=== PATIENT | female | born 1935 | race Caucasian/White ===

== ENCOUNTER 2016-06-22 20:25 | Emergency (ER) | payer OTHER ==
[2016-06-22 20:30] VITALS: BP 149/72; PULSE 79; TEMP 98.4; BMI 26.2
--- NOTE | 2016-06-22 20:54 | PDOC ---
History of Present Illness - General History Source: Patient Exam Limitations: No Limitations - History of Present Illness Initial Comments: 06/22/16 21:32 The patient is a 80 year old female, with significant past medical history of COPD, HTN, HLP s/p pacemaker, CVA, hypothyroidism, who presents today complaining of weakness and SOB. The patient visited the emergency room on and was discharged with pneumonia.She states that she has not been feeling any better since she has been discharged. She was getting her hair done this morning when she felt very weak and felt like she was going to pass out. Upon arriving home, she used a nebulizer treatment. She states that she feels like she needs air and feels shaky. She reports a loss of appetite and states that she has not been sleeping because she is afraid she will not be able to breath. On Friday, 4 days ago, she saw Dr. Carnes who prescribed her 1 month of water pills. Denies fever, nausea, vomiting. Denies chest pain, palpitations. Allergies: None reported PCP- Dr. Radha Barrera Lung specialist: Dr. Salazar Cream Cheese Maker: Dr Jorge L Mcginnis Neuro- Dr. Heck <Lara Sawant - Last Filed: 06/22/16 22:53> - General History Source: Patient, Old Records Exam Limitations: No Limitations <Kaela Zamorano - Last Filed: 06/22/16 23:36> - General Chief Complaint: Respiratory Stated Complaint: WEKNESS TO LEGS/SOB Time Seen by Provider: 06/22/16 20:46 Past History <Lara Sawant - Last Filed: 06/22/16 22:53> - Past Medical History Cardiac Disorders: Yes (pacemaker) CVA: Yes COPD: Yes HTN: Yes Hypercholesterolemia: Yes Thyroid Disease: Yes - Surgical History Cholecystectomy: Yes - Immunization History Immunization Up to Date: Yes - Psycho/Social/Smoking Cessation Hx Anxiety: No Suicidal Ideation: No Smoking Status: No Smoking History: Never smoked Years of Tobacco Use: 20 Have you smoked in the past 12 months: No Number of Cigarettes Smoked Daily: 0 If you are a former smoker, when did you quit?: 30 years Cigars Per Day: 0 Hx Alcohol Use: No Drug/Substance Use Hx: No Substance Use Type: None Hx Substance Use Treatment: No <LonaKaela - Last Filed: 06/22/16 23:36> - Past Medical History Allergies/Adverse Reactions: Allergies Allergy/AdvReac Type Severity Reaction Status Date / Time No Known Allergies Allergy Verified 06/22/16 20:30 Home Medications: Ambulatory Orders Fluticasone/Salmeterol [Advair 100-50 Diskus] 1 inh IH BID #0 disk.w.dev Tiotropium [place] [Spiriva] 1 inh IH DAILY #0 inh 07/04/11 Aspirin/Dipyridamole [Aggrenox -] 1 combo PO BID 06/11/15 Thyroid,Pork [[place] Thyroid] 30 mg PO DAILY 06/11/15 Azithromycin [Zithromax 250mg Tablets -] 250 mg PO DAILY #3 tab 06/08/16 Lactobacillus Acidophilus [Acidophilus] 100 mg PO DAILY #14 capsule 06/08/16 Furosemide [Lasix -] 20 mg PO DAILY #7 tablet 06/09/16 Nitrofurantoin Monohyd/M-Cryst [Macrobid -] 100 mg PO BID #14 capsule 06/22/16 [place]-3 Fatty Acids [[place]-3] 1,000 mg PO 06/22/16 Review of Systems - Review of Systems Able to Perform ROS?: Yes Comments:: 06/22/16 21:33 CONSTITUTIONAL: Present: weakness, chills Absent: fever, no fatigue EYES: Absent: visual changes ENT: Absent: ear pain, no sore throat CARDIOVASCULAR: Absent: chest pain, no palpitations RESPIRATORY: Present: SOB Absent: cough GI: Absent: abdominal pain, no nausea, no vomiting, no constipation, no diarrhea GENITOURINARY: Absent: dysuria, no frequency, no hematuria MUSCULOSKELETAL: Absent: back pain, no arthralgia, no myalgia SKIN: Absent: rash <Lara Sawant - Last Filed: 06/22/16 22:53> *Physical Exam - Vital Signs Last Vital Signs Temp Pulse Resp BP Pulse Ox 98.4 F 79 18 149/72 98 06/22/16 20:27 06/22/16 20:27 06/22/16 20:27 06/22/16 20:27 06/22/16 20:27 - Physical Exam Comments: 06/22/16 21:33 GENERAL: Well-appearing, well-nourished. No apparent distress. HEENT: Normocephalic, atraumatic. PERRL, EOM intact. CARDIOVASCULAR: Normal S1, S2. Regular rate and rhythm. PULMONARY: +Good air movement of all lung hernandez with scant wheezing at the bases. ABDOMEN: Soft, non-distended, non-tender. EXTREMITIES: Normal ROM in all four extremities. No gross deformities. SKIN: Warm, dry. No rash NEUROLOGICAL: No focal neurological deficits. <Lara Sawant - Last Filed: 06/22/16 22:53> - Vital Signs Last Vital Signs Temp Pulse Resp BP Pulse Ox 98.4 F 79 18 149/72 98 06/22/16 20:27 06/22/16 20:27 06/22/16 20:27 06/22/16 20:27 06/22/16 20:27 <Kaela Zamorano - Last Filed: 06/22/16 23:36> ED Treatment Course - LABORATORY CBC & Chemistry Diagram: 06/22/16 21:31 06/22/16 21:31 <Lara Sawant - Last Filed: 06/22/16 22:53> - LABORATORY CBC & Chemistry Diagram: 06/22/16 21:31 06/22/16 21:31 <Kaela Zamorano - Last Filed: 06/22/16 23:36> Medical Decision Making - Medical Decision Making 06/22/16 22:49 Dr. Radha Barrera was paged via paging service for a doctor to doctor consult at 10:50pm. Awaiting call back. Dr. Saleh is covering for Dr. Barrera and called back at 10:54pm. He spoke with Dr. Zamorano regarding the patient's care. <Lauro Sawantssica - Last Filed: 06/22/16 22:53> - Medical Decision Making 06/22/16 21:23 The patient is a 80-year-old female with history of COPD, hypothyroid, CHF, hypertension who presents to the emergency department with generalized weakness and shortness of breath for 2 weeks. Differential diagnosis includes but is not limited to: COPD exacerbation, CHF exacerbation, pneumonia/infection, ACS, cardiac arrhythmia, anemia, electrolyte abnormality, toxic/metabolic derangement , anxiety. Plan: 1. EKG 2. Labs 3. Chest x-ray 4. DuoNeb treatments 5. Observe and reevaluate <Kaela Zamorano - Last Filed: 06/22/16 23:36> *DC/Admit/Observation/Transfer - Attestations Scribe Attestion: 06/22/16 21:33 Documentation prepared by DIETER Khan, acting as chief medical officer for Kaela Zamorano MD. <Lara Sawant - Last Filed: 06/22/16 22:53> - Discharge Dispostion Admit: No - Attestations Physician Attestion: 06/22/16 21:25 I, Dr. Kaela Zamorano, attest that the scribes documentation that appears above has been prepared under my direction and personally reviewed by me in its entirety. I confirmed that the note above accurately reflects all work, treatment, procedures, and medical decision-making performed by me. <Kaela Zamorano - Last Filed: 06/22/16 23:36> Diagnosis at time of Disposition: Shortness of breath, Urinary tract infection - Discharge Dispostion Disposition: HOME Condition at time of disposition: Stable - Prescriptions Prescriptions: Nitrofurantoin Monohyd/M-Cryst [Macrobid -] 100 mg PO BID #14 capsule - Referrals Referrals: Radha Barrera MD [Primary Care Provider] - - Patient Instructions Additional Instructions: You have a urinary tract infection. You have been given Macrobid 100 mg in the emergency department. Prescription for Macrobid 100 mg 1 tablet twice per day for 7 days has been sent to your pharmacy. Please follow up with your primary care physician this week. Return to the emergency department if your symptoms persist, worsen, or new symptoms arise.
[2016-06-22] MEDS ORDERED: IPRATROPIUM BR 0.02% 0.5 MG/2.5 ML VIAL.NEB. NEB ONE (21:13)
[2016-06-22] MEDS ORDERED: ALBUTEROL SO4 0.083% IH SOL 2.5 MG/3 ML VIAL.NEB. NEB ONE (21:13)
[2016-06-22] MEDS ORDERED: ALBUTEROL SO4 2.5/IPRATROPIUM 0.5 INH SOL 3 ML VIAL.NEB. NEB ONE (21:31)
[2016-06-22 21:45] LABS: BASOPHIL 0.6 % (0-2.0); EOSINOPHIL 0.6 % (0-4.5); MCH 31.2 pg (25.7-33.7); MCHC 32.8 g/dl (32.0-36.0); MEAN CELL VOLUME 95.3 fl (80-96); MEAN PLT VOLUME 7.9 fl (7.5-11.1); PLATELET COUNT 270 K/MM3 (134-434)
[2016-06-22 22:09] LABS: ALBUMIN 3.7 g/dl (3.4-5.0); ANION GAP 9 (8-16); BILIRUBIN,TOTAL 0.7 mg/dL (0.2-1.0); CALCIUM 8.8 mg/dL (8.5-10.1); CO2 29 mmol/L (21-32); CREATININE 0.8 mg/dL (0.55-1.02); GLUCOSE,RANDOM 107 mg/dL (74-106); SGOT/AST 17 U/L (15-37); SGPT/ALT 18 U/L (12-78); TOT PROT 6.8 g/dl (6.4-8.2)
[2016-06-22 22:11] LABS: ALK PHOS 97 U/L (45-117); TROPONIN I < 0.02 ng/ml (0.00-0.05)
[2016-06-22 22:57] LABS: URINE APPEARANCE SLCLOUDY; URINE BILIRUBIN NEGATIVE (NEGATIVE); URINE BLOOD NEGATIVE (NEGATIVE); URINE COLOR YELLOW; URINE GLUCOSE (UA) NEGATIVE (NEGATIVE); URINE KETONE TRACE (NEGATIVE); URINE NITRITE NEGATIVE (NEGATIVE); URINE UROBILINOGEN NEGATIVE E.U./dl (0.2-1.0)
[2016-06-22 23:18] LABS: URINE PROTEIN 1+ (NEGATIVE)
[2016-06-22 23:19] LABS: URINE LEUK ESTERASE 3+ (NEGATIVE)
[2016-06-22 23:23] LABS: URINE HYALINE CAST 1 /lpf; URINE MUCUS MODERATE; URINE RBC 4 /hpf (0-3); URINE WBC 108 /hpf (3-5)
[2016-06-22] MEDS ORDERED: NITROFURANTOIN MACROCRYSTAL 50 MG CAPSULE (FP) PO SCH (23:45)
[2016-06-23] MEDS ORDERED: NITROFURANTOIN MACROCRYSTAL 50 MG CAPSULE (FP) ONE (00:53)
--- NOTE | 2016-06-23 14:38 | EKG ---
Test Reason : Blood Pressure : / mmHG Vent. Rate : 066 BPM Atrial Rate : 066 BPM P-R Int : 000 ms QRS Dur : 148 ms QT Int : 448 ms P-R-T Axes : 000 -54 041 degrees QTc Int : 469 ms POOR DATA QUALITY, INTERPRETATION MAY BE ADVERSELY AFFECTED INTERMITTENT ATRIAL PACING WITH CAPTURE SINUS RHYTHM WITH A-V DISSOCIATION AND WIDE QRS RHYTHM LEFT AXIS DEVIATION LEFT BUNDLE BRANCH BLOCK ABNORMAL ECG WHEN COMPARED WITH ECG OF 09-JUN-2016 06:27, WIDE QRS RHYTHM HAS REPLACED ELECTRONIC ATRIAL PACEMAKER Confirmed by MIGUEL SINGH MD ([id number]) on 06/23/2016 2:38:18 PM Referred By: Confirmed By:MIGUEL SINGH MD
== END 2016-06-23 01:05 | disposition home or self-care (01) ==
LOC: JER 20:25
PROC: 3E0F7GC Introduction of Other Therapeutic Substance into Respiratory Tract, Via Natural or Artificial Opening (ICD-10-PCS; principal; 2016-06-22)
PROC: 3E0F7GC Introduction of Other Therapeutic Substance into Respiratory Tract, Via Natural or Artificial Opening (ICD-10-PCS; 2016-06-22)
DX: N39.0 Urinary tract infection, site not specified (principal); I10 Essential (primary) hypertension; E78.00 Pure hypercholesterolemia, unspecified; E03.9 Hypothyroidism, unspecified; I50.9 Heart failure, unspecified; J44.9 Chronic obstructive pulmonary disease, unspecified; Z86.73 Personal history of transient ischemic attack (TIA), and cerebral infarction without residual deficits; Z95.0 Presence of cardiac pacemaker
CPT/HCPCS: 36415; 71020-TC; 80053; 81003; 81015; 82550; 83880; 84484; 85025; 87086; 93005; 93010; 94640; 99282-25

== ENCOUNTER 2016-12-11 11:02 | Inpatient (IN) | payer OTHER ==
[2016-12-11] MEDS ORDERED: methylPREDNISolone NA SUCC 125 MG/2 ML VIAL IVPB ONE (12:04)
--- NOTE | 2016-12-11 12:05 | PDOC ---
History of Present Illness - General History Source: Patient Exam Limitations: No Limitations - History of Present Illness Initial Comments: 12/11/16 12:14 The patient is an 81-year-old woman with a significant past medical history of hypertension, hypercholesterolemia, cerebrovascular accident, thyroid disease and chronic obstructive pulmonary disease who presents to the emergency department with complaints of a cough since last night. Upon ED arrival, patient ios noted to have an oxygen saturation of 89% and an oral temperature of 99.1. She reports endorsing an intermittent dry non-productive cough last night. No associated fevers, chills. She has not taken any over the counter medicines to help her with her cough. She reports her cough had worsened throughout the morning, as now it is constant. She denies associated symptoms of shortness of breath. sore throat, chest pain, nausea, vomiting, diarrhea. She expresses concern for possible pneumonia. No recent travel. No sick contacts. Allergies: No Known Drug Allergies Past Surgicla History: Permanent Pacemaker Placement Social History: Former smoker (quit approximately 30 years ago). No EtOH and recreational drug use. Primary Care Physician: Dr. Radha Carnes <Joanie Hankins - Last Filed: 12/11/16 14:25> <Carmelita Gaines - Last Filed: 12/11/16 21:04> - General Chief Complaint: Respiratory Stated Complaint: (PCP SENT) Time Seen by Provider: 12/11/16 11:39 Past History <Joanie Hankins - Last Filed: 12/11/16 14:25> - Past Medical History Cardiac Disorders: Yes (pacemaker) CVA: Yes COPD: Yes HTN: Yes Hypercholesterolemia: Yes Thyroid Disease: Yes - Surgical History Cholecystectomy: Yes Lung Surgery: Yes (R LUNG .) - Immunization History Immunization Up to Date: Yes - Psycho/Social/Smoking Cessation Hx Anxiety: No Suicidal Ideation: No Smoking Status: No Smoking History: Former smoker Years of Tobacco Use: 20 Have you smoked in the past 12 months: No Number of Cigarettes Smoked Daily: 0 If you are a former smoker, when did you quit?: 30 YRS AGO Cigars Per Day: 0 Information on smoking cessation initiated: No Hx Alcohol Use: No Drug/Substance Use Hx: No Substance Use Type: None Hx Substance Use Treatment: No <Carmelita Gaines - Last Filed: 12/11/16 21:04> - Past Medical History Allergies/Adverse Reactions: Allergies Allergy/AdvReac Type Severity Reaction Status Date / Time No Known Allergies Allergy Verified 12/11/16 11:09 Home Medications: Ambulatory Orders Fluticasone/Salmeterol [Advair 100-50 Diskus] 1 inh IH BID #0 disk.w.dev Tiotropium [place] [Spiriva] 1 inh IH DAILY #0 inh 07/04/11 Aspirin/Dipyridamole [Aggrenox -] 1 combo PO BID 06/11/15 Thyroid,Pork [[place] Thyroid] 30 mg PO DAILY 06/11/15 Albuterol Sulfate [Proair Respiclick] 90 mcg IH 12/11/16 Atorvastatin Calcium 40 mg PO DAILY 12/11/16 Gabapentin 100 mg PO BID 12/11/16 Review of Systems - Review of Systems Able to Perform ROS?: Yes Comments:: 12/11/16 12:14 GENERAL/CONSTITUTIONAL: No fever or chills. No weakness. HEAD, EYES, EARS, NOSE AND THROAT: No change in vision. No ear pain or discharge. No sore throat. CARDIOVASCULAR: No chest pain or shortness of breath. RESPIRATORY: Yes: Cough. No wheezing, or hemoptysis. GASTROINTESTINAL: No nausea, vomiting, diarrhea or constipation. GENITOURINARY: No dysuria, frequency, or change in urination. MUSCULOSKELETAL: No joint or muscle swelling or pain. No neck or back pain. SKIN: No rash NEUROLOGIC: No headache, vertigo, loss of consciousness, or change in strength/ sensation. ENDOCRINE: No increased thirst. No abnormal weight change. HEMATOLOGIC/LYMPHATIC: No anemia, easy bleeding, or history of blood clots. ALLERGIC/IMMUNOLOGIC: No hives or skin allergy. <Joanie Hankins - Last Filed: 12/11/16 14:25> *Physical Exam - Vital Signs Last Vital Signs Temp Pulse Resp BP Pulse Ox 99.1 F 75 20 139/57 89 L 12/11/16 11:04 12/11/16 11:04 12/11/16 11:04 12/11/16 11:04 12/11/16 11:04 - Physical Exam Comments: 12/11/16 12:15 <Joanie Hankins - Last Filed: 12/11/16 14:25> - Vital Signs Last Vital Signs Temp Pulse Resp BP Pulse Ox 99.1 F 75 20 139/57 89 L 12/11/16 11:04 12/11/16 11:04 12/11/16 11:04 12/11/16 11:04 12/11/16 11:04 - Physical Exam Comments: GENERAL: Awake, alert, and fully oriented, in no acute distress HEAD: No signs of trauma EYES: PERRLA, EOMI, sclera anicteric, conjunctiva clear ENT: Auricles normal inspection, hearing grossly normal, nares patent, oropharynx clear without exudates. Moist mucosa NECK: Normal ROM, supple, no lymphadenopathy, JVD, or masses LUNGS: Dec air entry B/L. Intermittent episodes of hacking cough, nonproductive. HEART: Regular rate and rhythm, normal S1 and S2, no murmurs, rubs or gallops ABDOMEN: Soft, nontender, normoactive bowel sounds. No guarding, no rebound. No masses EXTREMITIES: Normal range of motion, no edema. No clubbing or cyanosis. No cords, erythema, or tenderness NEUROLOGICAL: Cranial nerves II through XII grossly intact. Normal speech, normal gait SKIN: Warm, Dry, normal turgor, no rashes or lesions noted. <Carmelita Gaines - Last Filed: 12/11/16 21:04> ED Treatment Course - LABORATORY CBC & Chemistry Diagram: 12/11/16 12:05 12/11/16 12:05 - RADIOLOGY Radiograph Interpretation: 12/11/16 13:14 EXAM: RAD/CHEST X-RAY PORTABLE Interpreted by Dr. Deyvi Suarez IMPRESSION: Single portable chest x-ray. Comparison study June 22, 2016. Left pacemaker with 2 intact leads. Unremarkable contour of the cardiomediastinal silhouette. No evidence of pneumonia, CHF, or pneumothorax. No large pleural effusion is seen. Widened right AC joint. Degenerative changes of the shoulder joints. <Joanie Hankins - Last Filed: 12/11/16 14:25> - LABORATORY CBC & Chemistry Diagram: 12/11/16 12:05 12/11/16 12:05 <Carmelita Gaines - Last Filed: 12/11/16 21:04> Medical Decision Making - Medical Decision Making 12/11/16 14:25 Pageclifton Carnes <Joanie Hankins - Last Filed: 12/11/16 14:25> - Medical Decision Making Pt improved with nebs and steroids, but still desatting on the monitor. Will admit for IV abx, steroids, and treatments for the bronchitis. D/w Dr. Barrera, will admit to his service. <Carmelita Gaines - Last Filed: 12/11/16 21:04> *DC/Admit/Observation/Transfer - Attestations Scribe Attestion: 12/11/16 12:15 Documentation prepared by Joanie Hankins, acting as medical i d sales for Carmelita Gaines MD. <Joanie Hankins - Last Filed: 12/11/16 14:25> - Discharge Dispostion Admit: Yes <Carmelita Gaines - Last Filed: 12/11/16 21:04> Diagnosis at time of Disposition: COPD exacerbation, Bronchitis - Discharge Dispostion Condition at time of disposition: Stable - Referrals
[2016-12-11 12:32] LABS: BASOPHIL 0.3 % (0-2.0); EOSINOPHIL 0.1 % (0-4.5); MCH 32.3 pg (25.7-33.7); MCHC 33.5 g/dl (32.0-36.0); MEAN CELL VOLUME 96.2 fl (80-96); MEAN PLT VOLUME 7.4 fl (7.5-11.1); NEUTROPHILS 83.9 % (42.8-82.8); PLATELET COUNT 214 K/MM3 (134-434); RDW 13.2 % (11.6-15.6); WHITE BLOOD COUNT 14.5 K/mm3 (4.0-10.0)
[2016-12-11] MEDS: ALBUTEROL SO4 2.5/IPRATROPIUM 0.5 INH SOL 3 ML VIAL.NEB. NEB SCH ×5 (12:35→23:06)
[2016-12-11] MEDS ORDERED: methylPREDNISolone NA SUCC 125 MG/2 ML VIAL ONE (12:46)
[2016-12-11 12:51] LABS: INR 1.17 (0.82-1.09); PROTHROMBIN TIME (PATIENT) 12.9 SEC (9.98-11.88)
[2016-12-11 12:52] LABS: ALBUMIN 3.5 g/dl (3.4-5.0); ANION GAP 8 (8-16); BILIRUBIN,TOTAL 0.8 mg/dL (0.2-1.0); CALCIUM 8.7 mg/dL (8.5-10.1); CO2 31 mmol/L (21-32); CREATININE 0.7 mg/dL (0.55-1.02); GLUCOSE,RANDOM 105 mg/dL (74-106); SGPT/ALT 14 U/L (12-78); TOT PROT 6.7 g/dl (6.4-8.2)
[2016-12-11 12:55] LABS: ALK PHOS 87 U/L (45-117); SGOT/AST 19 U/L (15-37)
[2016-12-11] MEDS ORDERED: AZITHROMYCIN IVPB 500 MG in DEXTROSE 5%-WATER - 250 ML IVPB ONE (14:04)
[2016-12-11] MEDS ORDERED: AZITHROMYCIN IVPB 250 ML IVPB ONE (14:07)
[2016-12-11] MEDS ORDERED: ASPIRIN/DIPYRIDAMOLE 25 MG/200 MG CAPSULE (FP) PO ONE (14:27)
[2016-12-11] MEDS ORDERED: THYROID 30 MG TABLET PO SCH (14:30)
[2016-12-11] MEDS ORDERED: ACETAMINOPHEN 325 MG TABLET (FP) PO PRN (16:48)
[2016-12-11] MEDS ORDERED: IPRATROPIUM BR 0.02% 0.5 MG/2.5 ML VIAL.NEB. NEB SCH (18:00)
[2016-12-11] MEDS ORDERED: ALBUTEROL SO4 0.083% IH SOL 2.5 MG/3 ML VIAL.NEB. NEB SCH (18:00)
[2016-12-11] MEDS: methylPREDNISolone NA SUCC 40 MG/1 ML VIAL IVPB SCH (18:02)
[2016-12-11 18:44] VITALS: BMI 26.8
[2016-12-11] MEDS: CEFTRIAXONE 50 ML IVPB SCH (18:50)
[2016-12-11] MEDS: ASPIRIN/DIPYRIDAMOLE 25 MG/200 MG CAPSULE (FP) PO SCH (21:53)
[2016-12-11] MEDS ORDERED: HEPARIN NA (PORCINE) 5,000 UNITS/ML 1ML VIAL SQ SCH (22:00)
[2016-12-11] MEDS: FLUTICASONE/SALMETEROL 100 MCG/50 MCG DISKUS IH SCH (22:21)
[2016-12-11 22:30] LABS: URINE APPEARANCE CLEAR; URINE BILIRUBIN NEGATIVE (NEGATIVE); URINE BLOOD NEGATIVE (NEGATIVE); URINE COLOR YELLOW; URINE GLUCOSE (UA) 1+ (NEGATIVE); URINE KETONE NEGATIVE (NEGATIVE); URINE LEUK ESTERASE 2+ (NEGATIVE); URINE NITRITE NEGATIVE (NEGATIVE); URINE PROTEIN NEGATIVE (NEGATIVE); URINE UROBILINOGEN NEGATIVE E.U./dl (0.2-1.0)
[2016-12-11 22:33] LABS: URINE BACTERIA RARE /hpf (NONE SEEN); URINE HYALINE CAST 1 /lpf; URINE MUCUS RARE; URINE RBC 2 /hpf (0-3); URINE WBC 5 /hpf (3-5)
[2016-12-12] MEDS: methylPREDNISolone NA SUCC 40 MG/1 ML VIAL IVPB SCH ×3 (03:11→17:52)
[2016-12-12] MEDS: ALBUTEROL SO4 2.5/IPRATROPIUM 0.5 INH SOL 3 ML VIAL.NEB. NEB SCH ×4 (05:52→23:56)
[2016-12-12 07:47] LABS: BASOPHIL 0.1 % (0-2.0); MCH 32.8 pg (25.7-33.7); MCHC 34.3 g/dl (32.0-36.0); MEAN CELL VOLUME 95.5 fl (80-96); MEAN PLT VOLUME 7.6 fl (7.5-11.1); NEUTROPHILS 89.7 % (42.8-82.8); PLATELET COUNT 207 K/MM3 (134-434); RDW 13.3 % (11.6-15.6); WHITE BLOOD COUNT 14.9 K/mm3 (4.0-10.0)
[2016-12-12] MEDS: CEFTRIAXONE 50 ML IVPB SCH (09:03)
[2016-12-12] MEDS: FLUTICASONE/SALMETEROL 100 MCG/50 MCG DISKUS IH SCH ×2 (09:03→21:47)
[2016-12-12] MEDS: ASPIRIN/DIPYRIDAMOLE 25 MG/200 MG CAPSULE (FP) PO SCH ×2 (09:04→21:46)
[2016-12-12] MEDS: THYROID 15 MG TABLET PO SCH (09:05)
--- NOTE | 2016-12-12 10:32 | HP ---
Admitting History and Physical - Primary Care Physician PCP: Radha Barrera - Admission Chief Complaint: Cough, SOB History of Present Illness: This is a 81 year old woman with PMhx of COPD not on Home O2, Former smoker who presented with complaints of SOB and cough x 4-5 days and was sent into the ED from Dr. Galvez office for suspected PNA/COPD exacerbation. Pt reports non- productive cough and chills at home. NO sick contacts. NO Abx use. Uses inhaled steroids at home. No Home O2 use. + LUNDBERG. No LE swelling. No N/V/D. No LINDSAY/ Confusion or lethargy. Pt with prior admissions for PNA and COPD. Pt felt better intially after starting IV steroids in the ED. History Source: Patient Limitations to Obtaining History: No Limitations - Past Medical History Cardiovascular: Yes: Hyperlipdemia, Other (PPM) Pulmonary: Yes: COPD ...: No - Smoking History Smoking history: Former smoker Have you smoked in the past 12 months: No Aproximately how many cigarettes per day: 0 If you are a former smoker, when did you quit?: 30 YRS AGO - Alcohol/Substance Use Hx Alcohol Use: No History of Substance Use: reports: None - Social History Usual Living Arrangement: Yes: Alone ADL: Independent History of Recent Travel: No Home Medications - Allergies Allergies/Adverse Reactions: Allergies Allergy/AdvReac Type Severity Reaction Status Date / Time No Known Allergies Allergy Verified 12/11/16 11:09 - Home Medications Home Medications: Ambulatory Orders Fluticasone/Salmeterol [Advair 100-50 Diskus] 1 inh IH BID #0 disk.w.dev Tiotropium [place] [Spiriva] 1 inh IH DAILY #0 inh 07/04/11 Aspirin/Dipyridamole [Aggrenox -] 1 combo PO BID 06/11/15 Thyroid,Pork [[place] Thyroid] 30 mg PO DAILY 06/11/15 Albuterol Sulfate [Proair Respiclick] 90 mcg IH 12/11/16 Atorvastatin Calcium 40 mg PO DAILY 12/11/16 Gabapentin 100 mg PO BID 12/11/16 Family Disease History - Family Disease History Family History: Unremarkable Review of Systems - Review of Systems Constitutional: reports: Chills, Fever. denies: Lethargy, Loss of Appetite, Malaise, Night Sweats, Unintentional Wgt. Loss Eyes: reports: No Symptoms HENT: reports: No Symptoms Neck: reports: No Symptoms Cardiovascular: reports: Shortness of Breath. denies: Chest Pain, Edema, Palpitations Respiratory: reports: Cough, Exercise Intolerance, SOB, SOB on Exertion. denies : Hemoptysis, Orthopnea, PND, Snoring, Wheezing Gastrointestinal: reports: No Symptoms Genitourinary: reports: No Symptoms Musculoskeletal: reports: No Symptoms Integumentary: reports: No Symptoms Neurological: reports: No Symptoms Endocrine: reports: No Symptoms Hematology/Lymphatic: reports: No Symptoms Physical Examination Vital Signs: Vital Signs Temperature 97.9 F 12/12/16 04:00 Pulse Rate 65 12/12/16 04:00 Respiratory Rate 21 12/12/16 04:00 Blood Pressure 128/57 12/12/16 04:00 O2 Sat by Pulse Oximetry (%) 94 L 12/11/16 21:00 Constitutional: Yes: No Distress, Calm Eyes: Yes: Conjunctiva Clear HENT: Yes: Atraumatic, Normocephalic Neck: Yes: Supple Cardiovascular: Yes: Regular Rate and Rhythm, S1, S2. No: Murmur, Rub Respiratory: Yes: Regular, Cough, Diminished. No: Wheezes Gastrointestinal: Yes: Normal Bowel Sounds Extremities: No: Cold, Cool, Cyanosis Edema: No Integumentary: Yes: WNL Neurological: Yes: Alert, Oriented ...Motor Strength: WNL Psychiatric: Yes: Alert, Oriented Labs: CBC, BMP 12/12/16 06:00 Imaging - Results Chest X-ray: Report Reviewed Problem List - Problems (1) Bronchitis Code(s): J40 - BRONCHITIS, NOT SPECIFIED ACUTE OR CHRONIC (2) COPD exacerbation Code(s): J44.1 - CHRONIC OBSTRUCTIVE PULMONARY DISEASE W (ACUTE) EXACERBATION (3) Shortness of breath Code(s): R06.02 - SHORTNESS OF BREATH (4) History of permanent cardiac pacemaker placement Code(s): Z95.0 - PRESENCE OF CARDIAC PACEMAKER (5) Hypothyroid Code(s): E03.9 - HYPOTHYROIDISM, UNSPECIFIED Assessment/Plan 81 year old woman with PMhx of COPD, PPM placement, Hyperlipidemia, Hypothyrodism who presented with COPD exacerbation #COPD exacerbtation Continue IV steroids Continue Ceftriaxone and Zithromax Pulmonary consult Dr. Vidales O2 via nc to keep sat > 90 #Hypothrydism continue thyroid supplement #Hyperlidiemia Continue statin Pt will need inpatient Care Alex Saleh DO
[2016-12-12] MEDS ORDERED: ALBUTEROL SO4 0.083% IH SOL 2.5 MG/3 ML VIAL.NEB. NEB PRN (10:42)
--- NOTE | 2016-12-12 10:50 | CON.PULM ---
Consult Consult Specialty:: PULMONARY Referred by:: Dr. Saleh Reason for Consultation:: COPD exacerbation - History of Present Illness Chief Complaint: shortness of breath History of Present Illness: 81yo female with h/o COPD, HTN, hypercholesterolemia, hypothyroidism who presents with worsening shortness of breath x 1 week. Denies chest pain or palpitations but with chest tightness. +nonproductive cough and wheezing. No sick contacts or recent travel. Was hospitalized last in June for pneumonia and was discharged on home O2 at that time but has not really needed it. 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 Maintained on Advair 100/50, Spiriva at home. She is a former smoker, quit 30 years ago. - History Source History Provided By: Patient, Medical Record Limitations to Obtaining History: No Limitations - Past Medical History Cardio/Vascular: Yes: Hyperlipdemia, Other (PPM) Pulmonary: Yes: COPD ...: No - Alcohol/Substance Use Hx Alcohol Use: No History of Substance Use: reports: None - Smoking History Smoking history: Former smoker Have you smoked in the past 12 months: No Aproximately how many cigarettes per day: 0 If you are a former smoker, when did you quit?: 30 YRS AGO - Social History ADL: Independent History of Recent Travel: No Home Medications - Allergies Allergies/Adverse Reactions: Allergies Allergy/AdvReac Type Severity Reaction Status Date / Time No Known Allergies Allergy Verified 12/11/16 11:09 - Home Medications Home Medications: Ambulatory Orders Fluticasone/Salmeterol [Advair 100-50 Diskus] 1 inh IH BID #0 disk.w.dev Tiotropium [place] [Spiriva] 1 inh IH DAILY #0 inh 07/04/11 Aspirin/Dipyridamole [Aggrenox -] 1 combo PO BID 06/11/15 Thyroid,Pork [[place] Thyroid] 30 mg PO DAILY 06/11/15 Albuterol Sulfate [Proair Respiclick] 90 mcg IH 12/11/16 Atorvastatin Calcium 40 mg PO DAILY 12/11/16 Gabapentin 100 mg PO BID 12/11/16 Review of Systems - Review of Systems Constitutional: reports: Weakness. denies: Chills, Fever Eyes: denies: Recent Change in Vision HENT: denies: Nasal Congestion, Throat Pain Neck: denies: Stiffness, Tenderness Cardiovascular: reports: Shortness of Breath. denies: Chest Pain, Palpitations Respiratory: reports: Cough, SOB on Exertion, Wheezing. denies: Hemoptysis Gastrointestinal: denies: Abdominal Pain, Nausea, Vomiting Genitourinary: denies: Dysuria, Hematuria Neurological: denies: Dizziness, Headache Physical Exam Vital Sings: Vital Signs Temperature 97.9 F 12/12/16 04:00 Pulse Rate 65 12/12/16 04:00 Respiratory Rate 21 12/12/16 04:00 Blood Pressure 128/57 12/12/16 04:00 O2 Sat by Pulse Oximetry (%) 94 L 12/11/16 21:00 Constitutional: Yes: Calm Eyes: Yes: Conjunctiva Clear, EOM Intact HENT: Yes: Atraumatic, Normocephalic Neck: Yes: Supple, Trachea Midline Cardiovascular: Yes: Regular Rate and Rhythm Respiratory: Yes: Rhonchi (scattered) ...Clubbing: No Gastrointestinal: Yes: Normal Bowel Sounds, Soft. No: Tenderness Edema: No Peripheral Pulses WNL: Yes Neurological: Yes: Alert, Oriented Labs: CBC, BMP 12/12/16 06:00 Imaging - Results Chest X-ray: Report Reviewed, Image Reviewed (?RLL infiltrate) Problem List - Problems (1) COPD exacerbation Code(s): J44.1 - CHRONIC OBSTRUCTIVE PULMONARY DISEASE W (ACUTE) EXACERBATION (2) Pneumonia Code(s): J18.9 - PNEUMONIA, UNSPECIFIED ORGANISM Qualifiers: Pneumonia type: due to unspecified organism Laterality: left Lung location: unspecified part of lung Qualified Code(s): J18.9 - Pneumonia, unspecified organism (3) Hypothyroid Code(s): E03.9 - HYPOTHYROIDISM, UNSPECIFIED Assessment/Plan Acute COPD Exacerbation r/o Pneumonia Chronic Hypoxic Respiratory Failure Hypothyroidism Hypercholesterolemia h/o CVA - agree with IV medrol - inhaled bronchodilators standing and PRN - O2 to keep SpO2 >90% - agree with antibiotic coverage - repeat CXR in AM - DVT prophylaxis - will follow Thank you for this consult Michele Vidales MD
[2016-12-12] MEDS: AZITHROMYCIN IVPB 250 MG in DEXTROSE 5%-WATER - 250 ML IVPB SCH (10:58)
[2016-12-12] MEDS: TIOTROPIUM BROMIDE 18 MCG/INH (DEVICE W/ 5 CAPSULES) IH SCH (10:58)
--- NOTE | 2016-12-12 11:27 | EKG ---
Test Reason : Blood Pressure : / mmHG Vent. Rate : 065 BPM Atrial Rate : 065 BPM P-R Int : 136 ms QRS Dur : 132 ms QT Int : 438 ms P-R-T Axes : 058 -51 069 degrees QTc Int : 455 ms NORMAL SINUS RHYTHM LEFT BUNDLE BRANCH BLOCK ABNORMAL ECG WHEN COMPARED WITH ECG OF 22-JUN-2016 22:15, SINUS RHYTHM HAS REPLACED WIDE QRS RHYTHM Confirmed by RASHIDA LO, TRISHA ([id number]) on 12/12/2016 11:27:03 AM Referred By: Confirmed By:TRISHA FIELD MD
[2016-12-12] MEDS ORDERED: guaiFENesin 200 MG/10 ML 10 ML UNIT-DOSE CUPS PO PRN (17:39)
[2016-12-12] MEDS ORDERED: PT OWN MED DRAWER 7, Y5N ONE ×2 (21:28→21:30)
[2016-12-12] MEDS ORDERED: ATORVASTATIN CA 20 MG TABLET (FP) PO ONE (23:45)
[2016-12-13] MEDS: methylPREDNISolone NA SUCC 40 MG/1 ML VIAL IVPB SCH ×3 (03:00→17:06)
[2016-12-13] MEDS: ALBUTEROL SO4 2.5/IPRATROPIUM 0.5 INH SOL 3 ML VIAL.NEB. NEB SCH ×4 (06:35→23:01)
[2016-12-13 07:10] LABS: MCH 32.4 pg (25.7-33.7); MCHC 33.5 g/dl (32.0-36.0); MEAN CELL VOLUME 96.7 fl (80-96); MEAN PLT VOLUME 7.7 fl (7.5-11.1); PLATELET COUNT 223 K/MM3 (134-434); RDW 13.1 % (11.6-15.6)
[2016-12-13] MEDS: ASPIRIN/DIPYRIDAMOLE 25 MG/200 MG CAPSULE (FP) PO SCH ×2 (09:14→21:16)
[2016-12-13] MEDS: FLUTICASONE/SALMETEROL 100 MCG/50 MCG DISKUS IH SCH ×2 (09:15→21:16)
[2016-12-13] MEDS: AZITHROMYCIN IVPB 250 MG in DEXTROSE 5%-WATER - 250 ML IVPB SCH (09:15)
[2016-12-13] MEDS: THYROID 15 MG TABLET PO SCH (09:15)
[2016-12-13] MEDS: TIOTROPIUM BROMIDE 18 MCG/INH (DEVICE W/ 5 CAPSULES) IH SCH (09:15)
[2016-12-13] MEDS: CEFTRIAXONE 50 ML IVPB SCH (11:14)
--- NOTE | 2016-12-13 11:15 | PN ---
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
--- NOTE | 2016-12-13 13:44 | PN ---
Progress Note (short form) - Note Progress Note: Internal Medicine Follow up Pt seen and examined at the bedside continues to have dyspnea w/o significant improvement maintain on 3L O2 no chest pain, cough, fever, chills Vital Signs Temperature 98.6 F 12/13/16 13:35 Pulse Rate 88 12/13/16 13:35 Respiratory Rate 20 12/13/16 13:35 Blood Pressure 122/69 12/13/16 13:35 O2 Sat by Pulse Oximetry (%) 94 L 12/13/16 12:00 Intake & Output 12/10/16 12/11/16 12/12/16 12/13/16 23:59 23:59 23:59 23:59 Intake Total 100 1050 400 Balance 100 1050 400 Weight 148 lb 9.6 oz Gen: NAD on NC O2 CVS: RRR Lungs: Dec BS, Dec air exchange, no wheeze Abd: soft NT Ext: no edema CBC, BMP 12/13/16 06:00 12/11/16 12:05 Current Medications Acetaminophen (Tylenol -) 650 mg PO Q4H PRN PRN Reason: FEVER OR PAIN Albuterol Sulfate (Ventolin 0.083% Nebulizer Soln -) 1 amp NEB Q4H PRN PRN Reason: SHORT OF BREATH/WHEEZING Albuterol/Ipratropium (Duoneb -) 1 amp NEB QIDR ERON Last Admin: 12/13/16 11:21 Dose: 1 amp Atorvastatin Calcium (Lipitor -) 20 mg PO HS ERON Dipyridamole/Aspirin (Aggrenox -) 1 combo PO BID ERON Last Admin: 12/13/16 09:14 Dose: 1 combo Guaifenesin (Robitussin -) 10 ml PO Q4H PRN Last Admin: 12/12/16 17:52 Dose: 10 ml Azithromycin 250 mg/ Dextrose 250 mls @ 250 mls/hr IVPB DAILY [facility]ON Last Admin: 12/13/16 09:15 Dose: 250 mls/hr Ceftriaxone Sodium (Rocephin 1gm Ivpb (Pre-Docked)) 50 mls @ 100 mls/hr IVPB DAILY [facility]ON Last Admin: 12/13/16 11:14 Dose: 100 mls/hr Methylprednisolone Sodium Succinate (Solu-Medrol -) 40 mg IVPB Q8H-IV ERON Last Admin: 12/13/16 11:00 Dose: 40 mg Fluticasone/Salmeterol (Advair 100mcg/50mcg -) 1 puff IH BID ERON Last Admin: 12/13/16 09:15 Dose: 1 puff Thyroid ([place] Thyroid -) 30 mg PO DAILY ERON Last Admin: 12/13/16 09:15 Dose: 30 mg Tiotropium [place] (Spiriva -) 1 puff IH DAILY [facility] Last Admin: 12/13/16 09:15 Dose: 1 puff A/P 81 year old woman with PMhx of COPD, PPM placement, Hyperlipidemia, Hypothyrodism who presented with COPD exacerbation #COPD exacerbation Pulmonary consult appericated continue to titrate IV steroids continue O2 via NC continue zithromax and Ceftriaxone #Hypothrydism continue thyroid supplement #Hyperlidiemia Continue statin Continue inpatient care as pt continues to have significant SOB Alex Saleh DO Problem List - Problems (1) Bronchitis Code(s): J40 - BRONCHITIS, NOT SPECIFIED ACUTE OR CHRONIC (2) COPD exacerbation Code(s): J44.1 - CHRONIC OBSTRUCTIVE PULMONARY DISEASE W (ACUTE) EXACERBATION (3) Shortness of breath Code(s): R06.02 - SHORTNESS OF BREATH (4) History of permanent cardiac pacemaker placement Code(s): Z95.0 - PRESENCE OF CARDIAC PACEMAKER (5) Hypothyroid Code(s): E03.9 - HYPOTHYROIDISM, UNSPECIFIED
[2016-12-13] MEDS ORDERED: PT OWN MED DRAWER 7, Y5N ONE (21:02)
[2016-12-13] MEDS: ATORVASTATIN CA 20 MG TABLET (FP) PO SCH (21:16)
[2016-12-14] MEDS: methylPREDNISolone NA SUCC 40 MG/1 ML VIAL IVPB SCH ×4 (02:23→22:06)
[2016-12-14] MEDS: ALBUTEROL SO4 2.5/IPRATROPIUM 0.5 INH SOL 3 ML VIAL.NEB. NEB SCH ×3 (06:29→18:02)
[2016-12-14 07:36] LABS: BASOPHIL 0.1 % (0-2.0); MCH 32.5 pg (25.7-33.7); MCHC 33.7 g/dl (32.0-36.0); MEAN CELL VOLUME 96.4 fl (80-96); MEAN PLT VOLUME 7.7 fl (7.5-11.1); NEUTROPHILS 86.6 % (42.8-82.8); PLATELET COUNT 274 K/MM3 (134-434); RDW 13.1 % (11.6-15.6); WHITE BLOOD COUNT 17.9 K/mm3 (4.0-10.0)
[2016-12-14 07:54] LABS: ANION GAP 7 (8-16); CALCIUM 8.9 mg/dL (8.5-10.1); CO2 31 mmol/L (21-32); CREATININE 0.7 mg/dL (0.55-1.02); GLUCOSE,RANDOM 138 mg/dL (74-106); MAGNESIUM 2.7 mg/dL (1.8-2.4)
[2016-12-14] MEDS: TIOTROPIUM BROMIDE 18 MCG/INH (DEVICE W/ 5 CAPSULES) IH SCH (09:34)
[2016-12-14] MEDS: FLUTICASONE/SALMETEROL 100 MCG/50 MCG DISKUS IH SCH ×2 (09:35→22:06)
[2016-12-14] MEDS: ASPIRIN/DIPYRIDAMOLE 25 MG/200 MG CAPSULE (FP) PO SCH ×2 (09:35→22:07)
[2016-12-14] MEDS: CEFTRIAXONE 50 ML IVPB SCH (09:36)
[2016-12-14] MEDS: THYROID 30 MG TABLET PO SCH (09:36)
[2016-12-14] MEDS: AZITHROMYCIN IVPB 250 MG in DEXTROSE 5%-WATER - 250 ML IVPB SCH (09:39)
--- NOTE | 2016-12-14 10:20 | PN ---
Progress Note (short form) - Note Progress Note: PULMONARY Feels very slightly improved but still dyspneic and congested. No fevers or chills. +nonproductive cough. Last Vital Signs Temp Pulse Resp BP Pulse Ox 97.6 F 68 18 121/73 96 12/14/16 06:00 12/14/16 06:00 12/14/16 06:00 12/14/16 06:00 12/14/16 05:52 Gen: mildly tachypneic at rest Heart: RRR Lung: bilateral rhonchi, wheezes Abd: soft, nontender Ext: no edema CBC, BMP 12/14/16 06:10 12/14/16 06:10 Active Medications Acetaminophen (Tylenol -) 650 mg PO Q4H PRN PRN Reason: FEVER OR PAIN Albuterol Sulfate (Ventolin 0.083% Nebulizer Soln -) 1 amp NEB Q4H PRN PRN Reason: SHORT OF BREATH/WHEEZING Albuterol/Ipratropium (Duoneb -) 1 amp NEB QIDR [facility] Last Admin: 12/14/16 06:29 Dose: 1 amp Atorvastatin Calcium (Lipitor -) 20 mg PO HS [facility] Last Admin: 12/13/16 21:16 Dose: 20 mg Dipyridamole/Aspirin (Aggrenox -) 1 combo PO BID [facility] Last Admin: 12/14/16 09:35 Dose: 1 combo Guaifenesin (Robitussin -) 10 ml PO Q4H PRN Last Admin: 12/12/16 17:52 Dose: 10 ml Azithromycin 250 mg/ Dextrose 250 mls @ 250 mls/hr IVPB DAILY [facility] Last Admin: 12/14/16 09:39 Dose: 250 mls/hr Ceftriaxone Sodium (Rocephin 1gm Ivpb (Pre-Docked)) 50 mls @ 100 mls/hr IVPB DAILY [facility] Last Admin: 12/14/16 09:36 Dose: 100 mls/hr Methylprednisolone Sodium Succinate (Solu-Medrol -) 40 mg IVPB Q8H-IV ERON Last Admin: 12/14/16 09:37 Dose: 40 mg Fluticasone/Salmeterol (Advair 100mcg/50mcg -) 1 puff IH BID [facility] Last Admin: 12/14/16 09:35 Dose: 1 puff Thyroid ([place] Thyroid -) 30 mg PO DAILY [facility] Last Admin: 12/14/16 09:36 Dose: 30 mg Tiotropium [place] (Spiriva -) 1 puff IH DAILY [facility] Last Admin: 12/14/16 09:34 Dose: 1 puff A/P Acute COPD Exacerbation r/o Pneumonia Chronic Hypoxic Respiratory Failure Hypothyroidism Hypercholesterolemia h/o CVA - continue medrol, will increase to q6h for now - inhaled bronchodilators standing and PRN - O2 to keep SpO2 >90% - continue empiric antibiotic coverage - DVT prophylaxis Problem List - Problems (1) COPD exacerbation Code(s): J44.1 - CHRONIC OBSTRUCTIVE PULMONARY DISEASE W (ACUTE) EXACERBATION (2) Pneumonia Code(s): J18.9 - PNEUMONIA, UNSPECIFIED ORGANISM Qualifiers: Pneumonia type: due to unspecified organism Laterality: left Lung location: unspecified part of lung Qualified Code(s): J18.9 - Pneumonia, unspecified organism (3) Hypothyroid Code(s): E03.9 - HYPOTHYROIDISM, UNSPECIFIED
--- NOTE | 2016-12-14 10:28 | PN ---
Progress Note (short form) - Note Progress Note: Internal Medicine Follow up Pt seen and examined at the bedside has non-productive cough, continued dyspnea Vital Signs Temperature 97.6 F 12/14/16 06:00 Pulse Rate 68 12/14/16 06:00 Respiratory Rate 18 12/14/16 06:00 Blood Pressure 121/73 12/14/16 06:00 O2 Sat by Pulse Oximetry (%) 96 12/14/16 05:52 Intake & Output 12/11/16 12/12/16 12/13/16 12/14/16 23:59 23:59 23:59 23:59 Intake Total 100 1050 1470 50 Balance 100 1050 1470 50 Weight 148 lb 9.6 oz Gen: NAD on NC O2 CVS: RRR Lungs: Dec BS, Dec air exchange, no wheeze Abd: soft NT Ext: no edema CBC, BMP 12/14/16 06:10 12/14/16 06:10 Current Medications Acetaminophen (Tylenol -) 650 mg PO Q4H PRN PRN Reason: FEVER OR PAIN Albuterol Sulfate (Ventolin 0.083% Nebulizer Soln -) 1 amp NEB Q4H PRN PRN Reason: SHORT OF BREATH/WHEEZING Albuterol/Ipratropium (Duoneb -) 1 amp NEB QIDR ERON Last Admin: 12/14/16 06:29 Dose: 1 amp Atorvastatin Calcium (Lipitor -) 20 mg PO HS ERON Last Admin: 12/13/16 21:16 Dose: 20 mg Dipyridamole/Aspirin (Aggrenox -) 1 combo PO BID ERON Last Admin: 12/14/16 09:35 Dose: 1 combo Guaifenesin (Robitussin -) 10 ml PO Q4H PRN Last Admin: 12/12/16 17:52 Dose: 10 ml Azithromycin 250 mg/ Dextrose 250 mls @ 250 mls/hr IVPB DAILY [facility] Last Admin: 12/14/16 09:39 Dose: 250 mls/hr Ceftriaxone Sodium (Rocephin 1gm Ivpb (Pre-Docked)) 50 mls @ 100 mls/hr IVPB DAILY [facility] Last Admin: 12/14/16 09:36 Dose: 100 mls/hr Methylprednisolone Sodium Succinate (Solu-Medrol -) 40 mg IVPB Q6H-IV ERON Fluticasone/Salmeterol (Advair 100mcg/50mcg -) 1 puff IH BID [facility] Last Admin: 12/14/16 09:35 Dose: 1 puff Thyroid ([place] Thyroid -) 30 mg PO DAILY [facility] Last Admin: 12/14/16 09:36 Dose: 30 mg Tiotropium [place] (Spiriva -) 1 puff IH DAILY [facility] Last Admin: 12/14/16 09:34 Dose: 1 puff A/P 81 year old woman with PMhx of COPD, PPM placement, Hyperlipidemia, Hypothyrodism who presented with COPD exacerbation #COPD exacerbation Pulmonary consult appreciated titrate steroids as per pulmonary dec O2 to 2L and tiral of NC today continue Abx #Hypothrydism continue thyroid supplement #Hyperlidiemia Continue statin Continue inpatient care as pt continues to have significant SOB Alex Saleh DO Problem List - Problems (1) Bronchitis Code(s): J40 - BRONCHITIS, NOT SPECIFIED ACUTE OR CHRONIC (2) COPD exacerbation Code(s): J44.1 - CHRONIC OBSTRUCTIVE PULMONARY DISEASE W (ACUTE) EXACERBATION (3) Shortness of breath Code(s): R06.02 - SHORTNESS OF BREATH (4) History of permanent cardiac pacemaker placement Code(s): Z95.0 - PRESENCE OF CARDIAC PACEMAKER (5) Hypothyroid Code(s): E03.9 - HYPOTHYROIDISM, UNSPECIFIED
[2016-12-14] MEDS ORDERED: methylPREDNISolone NA SUCC 40 MG/1 ML VIAL IVPB SCH (10:30)
[2016-12-14] MEDS ORDERED: PT OWN MED DRAWER 7, Y5N ONE (21:17)
[2016-12-14] MEDS: ATORVASTATIN CA 20 MG TABLET (FP) PO SCH (22:07)
[2016-12-15] MEDS: methylPREDNISolone NA SUCC 40 MG/1 ML VIAL IVPB SCH ×4 (02:10→21:59)
[2016-12-15] MEDS: ALBUTEROL SO4 2.5/IPRATROPIUM 0.5 INH SOL 3 ML VIAL.NEB. NEB SCH ×5 (05:53→23:01)
[2016-12-15] MEDS ORDERED: PT OWN MED DRAWER 7, Y5N ONE ×2 (08:46→21:05)
--- NOTE | 2016-12-15 09:08 | PN ---
Progress Note (short form) - Note Progress Note: Internal Medicine Follow up Pt seen and examined at the bedside reports no change in how she feels sat in chair yesterday continues to have non-productive cough on IV steroids Vital Signs Temperature 97.8 F 12/15/16 04:00 Pulse Rate 80 12/15/16 04:00 Respiratory Rate 20 12/15/16 04:00 Blood Pressure 151/77 12/15/16 04:00 O2 Sat by Pulse Oximetry (%) 94 L 12/14/16 22:00 Intake & Output 12/12/16 12/13/16 12/14/16 12/15/16 23:59 23:59 23:59 23:59 Intake Total 1050 1470 400 50 Balance 1050 1470 400 50 Gen: NAD on NC O2 CVS: RRR Lungs: air exhange sounds improved, no wheeze Abd: soft NT Ext: no edema CBC, BMP 12/14/16 06:10 Current Medications Acetaminophen (Tylenol -) 650 mg PO Q4H PRN PRN Reason: FEVER OR PAIN Albuterol Sulfate (Ventolin 0.083% Nebulizer Soln -) 1 amp NEB Q4H PRN PRN Reason: SHORT OF BREATH/WHEEZING Albuterol/Ipratropium (Duoneb -) 1 amp NEB QIDR ERON Last Admin: 12/15/16 05:53 Dose: 1 amp Atorvastatin Calcium (Lipitor -) 20 mg PO HS ERON Last Admin: 12/14/16 22:07 Dose: 20 mg Dipyridamole/Aspirin (Aggrenox -) 1 combo PO BID ERON Last Admin: 12/14/16 22:07 Dose: 1 combo Guaifenesin (Robitussin -) 10 ml PO Q4H PRN Last Admin: 12/12/16 17:52 Dose: 10 ml Azithromycin 250 mg/ Dextrose 250 mls @ 250 mls/hr IVPB DAILY [facility] Last Admin: 12/14/16 09:39 Dose: 250 mls/hr Ceftriaxone Sodium (Rocephin 1gm Ivpb (Pre-Docked)) 50 mls @ 100 mls/hr IVPB DAILY [facility] Last Admin: 12/14/16 09:36 Dose: 100 mls/hr Methylprednisolone Sodium Succinate (Solu-Medrol -) 40 mg IVPB Q6H-IV ERON Last Admin: 12/15/16 02:10 Dose: 40 mg Fluticasone/Salmeterol (Advair 100mcg/50mcg -) 1 puff IH BID [facility] Last Admin: 12/14/16 22:06 Dose: 1 puff Thyroid ([place] Thyroid -) 30 mg PO DAILY [facility] Last Admin: 12/14/16 09:36 Dose: 30 mg Tiotropium [place] (Spiriva -) 1 puff IH DAILY [facility] Last Admin: 12/14/16 09:34 Dose: 1 puff A/P 81 year old woman with PMhx of COPD, PPM placement, Hyperlipidemia, Hypothyrodism who presented with COPD exacerbation #COPD exacerbation Pulmonary consult appreciated steroids titrated up yesterday, Lung exam sounds improved titrate to oral steroids when pulmonary feels that it is apporiate continue Abx for now #Hypothrydism continue thyroid supplement #Hyperlidiemia Continue statin #Elevated BP change diet to low salt steroids may be contributing to salt retention and higher BP Trend BP Alex Saleh DO Problem List - Problems (1) Bronchitis Code(s): J40 - BRONCHITIS, NOT SPECIFIED ACUTE OR CHRONIC (2) COPD exacerbation Code(s): J44.1 - CHRONIC OBSTRUCTIVE PULMONARY DISEASE W (ACUTE) EXACERBATION (3) Shortness of breath Code(s): R06.02 - SHORTNESS OF BREATH (4) History of permanent cardiac pacemaker placement Code(s): Z95.0 - PRESENCE OF CARDIAC PACEMAKER (5) Hypothyroid Code(s): E03.9 - HYPOTHYROIDISM, UNSPECIFIED
[2016-12-15] MEDS: THYROID 30 MG TABLET PO SCH (09:22)
[2016-12-15] MEDS: ASPIRIN/DIPYRIDAMOLE 25 MG/200 MG CAPSULE (FP) PO SCH ×2 (09:22→22:00)
[2016-12-15] MEDS: FLUTICASONE/SALMETEROL 100 MCG/50 MCG DISKUS IH SCH ×2 (09:23→22:00)
[2016-12-15] MEDS: TIOTROPIUM BROMIDE 18 MCG/INH (DEVICE W/ 5 CAPSULES) IH SCH (09:23)
[2016-12-15 09:47] LABS: MCH 32.1 pg (25.7-33.7); MCHC 33.6 g/dl (32.0-36.0); MEAN CELL VOLUME 95.7 fl (80-96); MEAN PLT VOLUME 7.9 fl (7.5-11.1); PLATELET COUNT 263 K/MM3 (134-434); RDW 12.7 % (11.6-15.6); WHITE BLOOD COUNT 12.8 K/mm3 (4.0-10.0)
[2016-12-15] MEDS: CEFTRIAXONE 50 ML IVPB SCH (10:20)
--- NOTE | 2016-12-15 10:29 | PN ---
Progress Note (short form) - Note Progress Note: PULMONARY Breathing about the same on increased steroids. No fevers or chills. + nonproductive cough. Last Vital Signs Temp Pulse Resp BP Pulse Ox 97.8 F 80 20 151/77 94 L 12/15/16 04:00 12/15/16 04:00 12/15/16 04:00 12/15/16 04:00 12/14/16 22:00 Gen: mildly tachypneic at rest Heart: RRR Lung: decreased breath sounds at the bases Abd: soft, nontender Ext: no edema CBC, BMP 12/15/16 06:15 12/14/16 06:10 Active Medications Acetaminophen (Tylenol -) 650 mg PO Q4H PRN PRN Reason: FEVER OR PAIN Albuterol Sulfate (Ventolin 0.083% Nebulizer Soln -) 1 amp NEB Q4H PRN PRN Reason: SHORT OF BREATH/WHEEZING Albuterol/Ipratropium (Duoneb -) 1 amp NEB QIDR [facility] Last Admin: 12/15/16 05:53 Dose: 1 amp Atorvastatin Calcium (Lipitor -) 20 mg PO HS [facility] Last Admin: 12/14/16 22:07 Dose: 20 mg Dipyridamole/Aspirin (Aggrenox -) 1 combo PO BID ERON Last Admin: 12/15/16 09:22 Dose: 1 combo Guaifenesin (Robitussin -) 10 ml PO Q4H PRN Last Admin: 12/12/16 17:52 Dose: 10 ml Ceftriaxone Sodium (Rocephin 1gm Ivpb (Pre-Docked)) 50 mls @ 100 mls/hr IVPB DAILY [facility] Last Admin: 12/15/16 10:20 Dose: 100 mls/hr Methylprednisolone Sodium Succinate (Solu-Medrol -) 40 mg IVPB Q6H-IV ERON Last Admin: 12/15/16 09:22 Dose: 40 mg Fluticasone/Salmeterol (Advair 100mcg/50mcg -) 1 puff IH BID [facility]ON Last Admin: 12/15/16 09:23 Dose: 1 puff Thyroid ([place] Thyroid -) 30 mg PO DAILY [facility]ON Last Admin: 12/15/16 09:22 Dose: 30 mg Tiotropium [place] (Spiriva -) 1 puff IH DAILY [facility] Last Admin: 12/15/16 09:23 Dose: 1 puff A/P Acute COPD Exacerbation r/o Pneumonia Chronic Hypoxic Respiratory Failure Hypothyroidism Hypercholesterolemia h/o CVA - continue medrol at current dose, no subjective improvement but lung exam appears improved - inhaled bronchodilators standing and PRN - O2 to keep SpO2 >90% - continue empiric antibiotic coverage - DVT prophylaxis Problem List - Problems (1) COPD exacerbation Code(s): J44.1 - CHRONIC OBSTRUCTIVE PULMONARY DISEASE W (ACUTE) EXACERBATION (2) Pneumonia Code(s): J18.9 - PNEUMONIA, UNSPECIFIED ORGANISM Qualifiers: Pneumonia type: due to unspecified organism Laterality: left Lung location: unspecified part of lung Qualified Code(s): J18.9 - Pneumonia, unspecified organism (3) Hypothyroid Code(s): E03.9 - HYPOTHYROIDISM, UNSPECIFIED
[2016-12-15] MEDS ORDERED: ALBUTEROL SO4 6.7 GM HFA INHALER IH PRN (10:34)
[2016-12-15] MEDS: AZITHROMYCIN IVPB 250 MG in DEXTROSE 5%-WATER - 250 ML IVPB SCH (14:03)
[2016-12-15] MEDS: ATORVASTATIN CA 20 MG TABLET (FP) PO SCH (21:59)
[2016-12-16] MEDS: methylPREDNISolone NA SUCC 40 MG/1 ML VIAL IVPB SCH ×4 (02:56→21:21)
[2016-12-16] MEDS ORDERED: NAPROXEN 500 MG TABLET (FP) PO PRN (05:36)
[2016-12-16] MEDS ORDERED: amLODIPine BESYLATE 5 MG TABLET (FP) PO ONE (05:45)
[2016-12-16] MEDS: ALBUTEROL SO4 2.5/IPRATROPIUM 0.5 INH SOL 3 ML VIAL.NEB. NEB SCH ×3 (07:05→18:47)
[2016-12-16] MEDS ORDERED: morphine CARPU-JECT 2 MG/1 ML DISP.SYRIN IVPUSH PRN (08:15)
[2016-12-16 08:23] LABS: MCH 32.1 pg (25.7-33.7); MCHC 33.9 g/dl (32.0-36.0); MEAN CELL VOLUME 94.7 fl (80-96); MEAN PLT VOLUME 7.8 fl (7.5-11.1); PLATELET COUNT 343 K/MM3 (134-434); RDW 12.9 % (11.6-15.6); WHITE BLOOD COUNT 17.2 K/mm3 (4.0-10.0)
[2016-12-16 08:38] LABS: ALBUMIN 3.5 g/dl (3.4-5.0); ANION GAP 8 (8-16); CO2 31 mmol/L (21-32); CREATININE 0.7 mg/dL (0.55-1.02); GLUCOSE,RANDOM 173 mg/dL (74-106); SGOT/AST 14 U/L (15-37); SGPT/ALT 20 U/L (12-78)
[2016-12-16 08:40] LABS: ALK PHOS 88 U/L (45-117); BILIRUBIN,TOTAL 0.7 mg/dL (0.2-1.0); TOT PROT 6.5 g/dl (6.4-8.2)
[2016-12-16] MEDS ORDERED: oxyCODONE HCL 5 MG TABLET PO ONE (08:45)
[2016-12-16] MEDS: FLUTICASONE/SALMETEROL 100 MCG/50 MCG DISKUS IH SCH (08:59)
[2016-12-16] MEDS: ASPIRIN/DIPYRIDAMOLE 25 MG/200 MG CAPSULE (FP) PO SCH ×2 (09:00→21:21)
[2016-12-16] MEDS: THYROID 30 MG TABLET PO SCH (09:00)
[2016-12-16] MEDS: CEFTRIAXONE 50 ML IVPB SCH (09:52)
[2016-12-16] MEDS ORDERED: SODIUM CHLORIDE 0.45% 1,000 ML IV SCH (10:00)
[2016-12-16 10:10] LABS: PLATELET ESTIMATE ADEQUATE (NORMAL)
--- NOTE | 2016-12-16 11:06 | PN ---
Progress Note (short form) - Note Progress Note: Internal Medicine Follow up Pt seen and examined at the bedside pt with 03/18 left lower quadrant abd pain that started last night denies any N/V/D, no fevers continues to have tenderness but is improved had a BM yesterday, is urinating ok denies any flank pain Vital Signs Temperature 98.0 F 12/16/16 08:35 Pulse Rate 69 12/16/16 08:35 Respiratory Rate 20 12/16/16 08:35 Blood Pressure 149/58 12/16/16 08:35 O2 Sat by Pulse Oximetry (%) 96 12/15/16 22:00 Intake & Output 12/13/16 12/14/16 12/15/16 12/16/16 23:59 23:59 23:59 23:59 Intake Total 1470 400 700 50 Balance 1470 400 700 50 Gen: NAD on NC O2 CVS: RRR Lungs: air exhange sounds improved, no wheeze Abd: soft + tenderness and guarding LLQ, no CVA tenderness Ext: no edema CBC, BMP 12/16/16 06:30 12/16/16 06:30 Laboratory Tests 12/11/16 12/11/16 12/16/16 12:05 22:00 06:30 Sodium 140 Potassium 4.1 Chloride 101 Carbon Dioxide 31 Anion Gap 8 BUN 16 Creatinine 0.7 Creat Clearance w eGFR > 60 Random Glucose 105 Lactic Acid Calcium 8.7 AST 14 L D ALT 20 D Alkaline Phosphatase 88 B-Natriuretic Peptide 462.38 H Albumin 3.5 3.5 Lipase 60 L Urine pH 6.0 Ur Specific [place] 1.015 Urine Glucose (UA) 1+ H Ur Leukocyte Esterase 2+ H Urine RBC 2 Urine WBC 5 12/16/16 08:20 Sodium Potassium Chloride Carbon Dioxide Anion Gap BUN Creatinine Creat Clearance w eGFR Random Glucose Lactic Acid 2.2 H* Calcium AST ALT Alkaline Phosphatase B-Natriuretic Peptide Albumin Lipase Urine pH Ur Specific [place] Urine Glucose (UA) Ur Leukocyte Esterase Urine RBC Urine WBC Current Medications Acetaminophen (Tylenol -) 650 mg PO Q4H PRN PRN Reason: FEVER OR PAIN Albuterol Sulfate (Ventolin 0.083% Nebulizer Soln -) 1 amp NEB Q4H PRN PRN Reason: SHORT OF BREATH/WHEEZING Albuterol Sulfate (Ventolin Hfa Inhaler -) 2 puff IH Q4H PRN PRN Reason: SHORT OF BREATH/WHEEZING Last Admin: 12/15/16 18:10 Dose: 2 puff Albuterol/Ipratropium (Duoneb -) 1 amp NEB QIDR [facility] Last Admin: 12/16/16 07:05 Dose: Not Given Atorvastatin Calcium (Lipitor -) 20 mg PO HS [facility] Last Admin: 12/15/16 21:59 Dose: 20 mg Dipyridamole/Aspirin (Aggrenox -) 1 combo PO BID [facility] Last Admin: 12/16/16 09:00 Dose: 1 combo Guaifenesin (Robitussin -) 10 ml PO Q4H PRN Last Admin: 12/12/16 17:52 Dose: 10 ml Ceftriaxone Sodium (Rocephin 1gm Ivpb (Pre-Docked)) 50 mls @ 100 mls/hr IVPB DAILY [facility] Last Admin: 12/16/16 09:52 Dose: 100 mls/hr Sodium Chloride (1/2 Normal Saline) 1,000 mls @ 75 mls/hr IV ASDIR [facility] Stop: 12/16/16 21:59 Methylprednisolone Sodium Succinate (Solu-Medrol -) 40 mg IVPB Q6H-IV ERON Last Admin: 12/16/16 08:59 Dose: 40 mg Morphine Sulfate (Morphine Injection -) 2 mg IVPUSH Q4H PRN PRN Reason: PAIN Naproxen (Naprosyn -) 500 mg PO Q6H PRN PRN Reason: PAIN Fluticasone/Salmeterol (Advair 100mcg/50mcg -) 1 puff IH BID [facility] Last Admin: 12/16/16 08:59 Dose: 1 puff Thyroid ([place] Thyroid -) 30 mg PO DAILY [facility] Last Admin: 12/16/16 09:00 Dose: 30 mg A/P 81 year old woman with PMhx of COPD, PPM placement, Hyperlipidemia, Hypothyrodism who presented with COPD exacerbation #COPD exacerbation continue steroids and Abx as per pulmonary recs #LLQ Abd pain CT of the Abd with Contrast to r/o Diverticulitis Morphine PRN GI consult pending CT results LFT/s WNL, Lipase WNL Lactic acid slightly elevated, will start some IVF #Hypothrydism continue thyroid supplement #Hyperlidiemia Continue statin #Elevated BP BP high overnight due to pain given Norvasc 5mg this am Trend BP if remains above gaol will keep norvasc as a standing medication Alex Saleh DO Problem List - Problems (1) Bronchitis Code(s): J40 - BRONCHITIS, NOT SPECIFIED ACUTE OR CHRONIC (2) COPD exacerbation Code(s): J44.1 - CHRONIC OBSTRUCTIVE PULMONARY DISEASE W (ACUTE) EXACERBATION (3) Shortness of breath Code(s): R06.02 - SHORTNESS OF BREATH (4) History of permanent cardiac pacemaker placement Code(s): Z95.0 - PRESENCE OF CARDIAC PACEMAKER (5) Hypothyroid Code(s): E03.9 - HYPOTHYROIDISM, UNSPECIFIED
--- NOTE | 2016-12-16 16:12 | PN ---
Progress Note, Physician History of Present Illness: PULMONARY ALERT,FEELING BETTER,LESS DYSPNEIC,+COUGH - Current Medication List Current Medications: Active Medications Acetaminophen (Tylenol -) 650 mg PO Q4H PRN PRN Reason: FEVER OR PAIN Albuterol Sulfate (Ventolin 0.083% Nebulizer Soln -) 1 amp NEB Q4H PRN PRN Reason: SHORT OF BREATH/WHEEZING Albuterol Sulfate (Ventolin Hfa Inhaler -) 2 puff IH Q4H PRN PRN Reason: SHORT OF BREATH/WHEEZING Last Admin: 12/15/16 18:10 Dose: 2 puff Albuterol/Ipratropium (Duoneb -) 1 amp NEB QIDR [facility] Last Admin: 12/16/16 11:14 Dose: 1 amp Atorvastatin Calcium (Lipitor -) 20 mg PO HS [facility] Last Admin: 12/15/16 21:59 Dose: 20 mg Dipyridamole/Aspirin (Aggrenox -) 1 combo PO BID [facility] Last Admin: 12/16/16 09:00 Dose: 1 combo Guaifenesin (Robitussin -) 10 ml PO Q4H PRN Last Admin: 12/12/16 17:52 Dose: 10 ml Ceftriaxone Sodium (Rocephin 1gm Ivpb (Pre-Docked)) 50 mls @ 100 mls/hr IVPB DAILY [facility] Last Admin: 12/16/16 09:52 Dose: 100 mls/hr Sodium Chloride (1/2 Normal Saline) 1,000 mls @ 75 mls/hr IV ASDIR [facility] Stop: 12/16/16 21:59 Last Admin: 12/16/16 13:00 Dose: 75 mls/hr Methylprednisolone Sodium Succinate (Solu-Medrol -) 40 mg IVPB Q6H-IV [facility]ON Last Admin: 12/16/16 14:40 Dose: 40 mg Morphine Sulfate (Morphine Injection -) 2 mg IVPUSH Q4H PRN PRN Reason: PAIN Naproxen (Naprosyn -) 500 mg PO Q6H PRN PRN Reason: PAIN Fluticasone/Salmeterol (Advair 100mcg/50mcg -) 1 puff IH BID [facility] Last Admin: 12/16/16 08:59 Dose: 1 puff Thyroid ([place] Thyroid -) 30 mg PO DAILY [facility] Last Admin: 12/16/16 09:00 Dose: 30 mg - Objective Vital Signs: Vital Signs Temperature 97.3 F L 12/16/16 13:58 Pulse Rate 75 12/16/16 13:58 Respiratory Rate 20 12/16/16 13:58 Blood Pressure 123/52 12/16/16 13:58 O2 Sat by Pulse Oximetry (%) 96 12/16/16 11:14 Constitutional: Yes: Well Nourished, Calm Eyes: Yes: WNL HENT: Yes: WNL Neck: Yes: WNL Cardiovascular: Yes: Regular Rate and Rhythm, S1, S2 Respiratory: Yes: Diminished, Wheezes (FEW SCATTERED WHEEZES) Gastrointestinal: Yes: Normal Bowel Sounds, Soft Extremities: Yes: WNL Edema: No Labs: CBC, BMP 12/16/16 06:30 12/16/16 06:30 INR, PTT INR 1.17 (0.82-1.09) H 12/11/16 12:05 Assessment/Plan A/P Acute COPD Exacerbation r/o Pneumonia Chronic Hypoxic Respiratory Failure Hypothyroidism Hypercholesterolemia h/o CVA - continue medrol reduce to q8h in am - inhaled bronchodilators standing and PRN - O2 to keep SpO2 >90% - empiric antibiotic coverage - DVT prophylaxis DR ARIZMENDI Problem List - Problems (1) COPD exacerbation Code(s): J44.1 - CHRONIC OBSTRUCTIVE PULMONARY DISEASE W (ACUTE) EXACERBATION (2) Pneumonia Code(s): J18.9 - PNEUMONIA, UNSPECIFIED ORGANISM Qualifiers: Pneumonia type: due to unspecified organism Laterality: left Lung location: unspecified part of lung Qualified Code(s): J18.9 - Pneumonia, unspecified organism (3) Hypothyroid Code(s): E03.9 - HYPOTHYROIDISM, UNSPECIFIED
[2016-12-16] MEDS ORDERED: PT OWN MED DRAWER 7, Y5N ONE (21:12)
[2016-12-16] MEDS: ATORVASTATIN CA 20 MG TABLET (FP) PO SCH (21:21)
[2016-12-16] MEDS: BUDESONIDE/FORMETEROL FUMARATE 160/4.5 mcg INHALER IH SCH (21:21)
[2016-12-17] MEDS: methylPREDNISolone NA SUCC 40 MG/1 ML VIAL IVPB SCH ×3 (01:12→17:26)
[2016-12-17] MEDS: ALBUTEROL SO4 2.5/IPRATROPIUM 0.5 INH SOL 3 ML VIAL.NEB. NEB SCH ×4 (06:30→18:02)
[2016-12-17 07:22] LABS: MCH 32.5 pg (25.7-33.7); MCHC 33.9 g/dl (32.0-36.0); MEAN CELL VOLUME 95.8 fl (80-96); MEAN PLT VOLUME 7.6 fl (7.5-11.1); PLATELET COUNT 249 K/MM3 (134-434); RDW 12.8 % (11.6-15.6); WHITE BLOOD COUNT 13.7 K/mm3 (4.0-10.0)
[2016-12-17 07:37] LABS: ALBUMIN 2.8 g/dl (3.4-5.0); ANION GAP 6 (8-16); CALCIUM 8.3 mg/dL (8.5-10.1); CO2 30 mmol/L (21-32); CREATININE 0.7 mg/dL (0.55-1.02); GLUCOSE,RANDOM 170 mg/dL (74-106); MAGNESIUM 2.6 mg/dL (1.8-2.4); PHOSPHOROUS 2.9 mg/dL (2.5-4.9); SGOT/AST 13 U/L (15-37); SGPT/ALT 17 U/L (12-78)
[2016-12-17 07:40] LABS: ALK PHOS 79 U/L (45-117); BILIRUBIN,TOTAL 0.4 mg/dL (0.2-1.0); TOT PROT 5.5 g/dl (6.4-8.2)
[2016-12-17] MEDS: BUDESONIDE/FORMETEROL FUMARATE 160/4.5 mcg INHALER IH SCH ×2 (09:43→21:36)
[2016-12-17] MEDS: CEFTRIAXONE 50 ML IVPB SCH (09:44)
[2016-12-17] MEDS: ASPIRIN/DIPYRIDAMOLE 25 MG/200 MG CAPSULE (FP) PO SCH ×2 (09:45→21:36)
[2016-12-17] MEDS: THYROID 30 MG TABLET PO SCH (09:46)
[2016-12-17 13:10] LABS: METAMYELOCYTE 2 % (0-2); PLATELET ESTIMATE ADEQUATE (NORMAL)
--- NOTE | 2016-12-17 14:39 | PN ---
Progress Note (short form) - Note Progress Note: Internal Medicine Follow up Pt seen and examined at the bedside abd pain is much improved sob is improved remains on NC O2 Vital Signs Temperature 98.6 F 12/17/16 08:29 Pulse Rate 70 12/17/16 11:20 Respiratory Rate 18 12/17/16 08:29 Blood Pressure 153/84 12/17/16 08:29 O2 Sat by Pulse Oximetry (%) 96 12/17/16 11:20 Intake & Output 12/14/16 12/15/16 12/16/16 12/17/16 23:59 23:59 23:59 23:59 Intake Total 400 700 850 Balance 400 700 850 Gen: NAD on NC O2 CVS: RRR Lungs: air exhange sounds improved, no wheeze Abd: soft + tenderness and guarding LLQ, no CVA tenderness Ext: no edema CBC, BMP 12/17/16 06:00 12/17/16 06:00 Current Medications Acetaminophen (Tylenol -) 650 mg PO Q4H PRN PRN Reason: FEVER OR PAIN Albuterol Sulfate (Ventolin Hfa Inhaler -) 2 puff IH Q4H PRN PRN Reason: SHORT OF BREATH/WHEEZING Last Admin: 12/15/16 18:10 Dose: 2 puff Albuterol/Ipratropium (Duoneb -) 1 amp NEB QIDR [facility] Last Admin: 12/17/16 11:20 Dose: 1 amp Atorvastatin Calcium (Lipitor -) 20 mg PO HS [facility] Last Admin: 12/16/16 21:21 Dose: 20 mg Budesonide/Formoterol Fumarate (Symbicort 160/4.5mcg -) 2 puff IH BID [facility] Last Admin: 12/17/16 09:43 Dose: 2 inh Dipyridamole/Aspirin (Aggrenox -) 1 combo PO BID [facility] Last Admin: 12/17/16 09:45 Dose: 1 combo Guaifenesin (Robitussin -) 10 ml PO Q4H PRN Last Admin: 12/12/16 17:52 Dose: 10 ml Ceftriaxone Sodium (Rocephin 1gm Ivpb (Pre-Docked)) 50 mls @ 100 mls/hr IVPB DAILY [facility] Last Admin: 12/17/16 09:44 Dose: 100 mls/hr Methylprednisolone Sodium Succinate (Solu-Medrol -) 40 mg IVPB Q8H-IV [facility] Last Admin: 12/17/16 09:43 Dose: 40 mg Morphine Sulfate (Morphine Injection -) 2 mg IVPUSH Q4H PRN PRN Reason: PAIN Naproxen (Naprosyn -) 500 mg PO Q6H PRN PRN Reason: PAIN Thyroid ([place] Thyroid -) 30 mg PO DAILY ERON Last Admin: 12/17/16 09:46 Dose: 30 mg A/P 81 year old woman with PMhx of COPD, PPM placement, Hyperlipidemia, Hypothyrodism who presented with COPD exacerbation #COPD exacerbation taper steroids as per pulmonary continue present Abx #LLQ Abd pain secondary to rectus sheath hematoma supportive care pain control Hgb stable on Aggrenox #Hypothrydism continue thyroid supplement #Hyperlidiemia Continue statin #Elevated BP BP remains elevated likely due to pain/steroids start amlodpine 10mg daily goal BP < 140/90 Alex Saleh DO Problem List - Problems (1) Bronchitis Code(s): J40 - BRONCHITIS, NOT SPECIFIED ACUTE OR CHRONIC (2) COPD exacerbation Code(s): J44.1 - CHRONIC OBSTRUCTIVE PULMONARY DISEASE W (ACUTE) EXACERBATION (3) Shortness of breath Code(s): R06.02 - SHORTNESS OF BREATH (4) History of permanent cardiac pacemaker placement Code(s): Z95.0 - PRESENCE OF CARDIAC PACEMAKER (5) Hypothyroid Code(s): E03.9 - HYPOTHYROIDISM, UNSPECIFIED
--- NOTE | 2016-12-17 15:21 | PN ---
Progress Note (short form) - Note Progress Note: SOB and abdominal discomfort are improving. Overall feels better. Intake & Output 12/14/16 12/15/16 12/16/16 12/17/16 23:59 23:59 23:59 23:59 Intake Total 400 700 850 Balance 400 700 850 Last Vital Signs Temp Pulse Resp BP Pulse Ox 98.4 F 69 18 133/72 96 12/17/16 14:53 12/17/16 14:53 12/17/16 14:53 12/17/16 14:53 12/17/16 11:20 Active Medications Acetaminophen (Tylenol -) 650 mg PO Q4H PRN PRN Reason: FEVER OR PAIN Albuterol Sulfate (Ventolin Hfa Inhaler -) 2 puff IH Q4H PRN PRN Reason: SHORT OF BREATH/WHEEZING Last Admin: 12/15/16 18:10 Dose: 2 puff Albuterol/Ipratropium (Duoneb -) 1 amp NEB QIDR [facility] Last Admin: 12/17/16 11:20 Dose: 1 amp Amlodipine Besylate (Norvasc -) 10 mg PO DAILY [facility] Atorvastatin Calcium (Lipitor -) 20 mg PO HS [facility] Last Admin: 12/16/16 21:21 Dose: 20 mg Budesonide/Formoterol Fumarate (Symbicort 160/4.5mcg -) 2 puff IH BID [facility] Last Admin: 12/17/16 09:43 Dose: 2 inh Dipyridamole/Aspirin (Aggrenox -) 1 combo PO BID [facility] Last Admin: 12/17/16 09:45 Dose: 1 combo Guaifenesin (Robitussin -) 10 ml PO Q4H PRN Last Admin: 12/12/16 17:52 Dose: 10 ml Ceftriaxone Sodium (Rocephin 1gm Ivpb (Pre-Docked)) 50 mls @ 100 mls/hr IVPB DAILY [facility] Last Admin: 12/17/16 09:44 Dose: 100 mls/hr Methylprednisolone Sodium Succinate (Solu-Medrol -) 40 mg IVPB Q8H-IV [facility] Last Admin: 12/17/16 09:43 Dose: 40 mg Morphine Sulfate (Morphine Injection -) 2 mg IVPUSH Q4H PRN PRN Reason: PAIN Thyroid ([place] Thyroid -) 30 mg PO DAILY [facility] Last Admin: 12/17/16 09:46 Dose: 30 mg Constitutional: Yes: NAD Eyes: Yes: WNL HENT: Yes: WNL Neck: Yes: WNL Cardiovascular: Yes: Regular Rate and Rhythm, S1, S2 Respiratory: Yes: Diminished, Few scattered / rhonchi wheezes Gastrointestinal: Yes: Normal Bowel Sounds, Soft Extremities: Yes: WNL Edema: No Labs: Laboratory Results - last 24 hr 12/17/16 12/17/16 06:00 06:00 WBC 13.7 H RBC 3.52 L Hgb 11.4 Hct 33.7 MCV 95.8 MCH 32.5 MCHC 33.9 RDW 12.8 Plt Count 249 D MPV 7.6 Neutrophils % 89.0 H Lymphocytes % 7.0 L Monocytes % 1.0 L Eosinophils % 0.0 Basophils % 0.0 Band Neutrophils 1.0 D Metamyelocytes 2 Platelet Estimate Adequate Sodium 139 Potassium 4.5 Chloride 103 Carbon Dioxide 30 Anion Gap 6 L BUN 21 H D Creatinine 0.7 Creat Clearance w eGFR > 60 Random Glucose 170 H Calcium 8.3 L Phosphorus 2.9 Magnesium 2.6 H Total Bilirubin 0.4 D AST 13 L ALT 17 Alkaline Phosphatase 79 Total Protein 5.5 L Albumin 2.8 L Problem List - Problems (1) COPD exacerbation Code(s): J44.1 - CHRONIC OBSTRUCTIVE PULMONARY DISEASE W (ACUTE) EXACERBATION (2) Pneumonia Code(s): J18.9 - PNEUMONIA, UNSPECIFIED ORGANISM Qualifiers: Pneumonia type: due to unspecified organism Laterality: left Lung location: unspecified part of lung Qualified Code(s): J18.9 - Pneumonia, unspecified organism (3) Hypothyroid Code(s): E03.9 - HYPOTHYROIDISM, UNSPECIFIED Assessment/PlanA/P Acute COPD Exacerbation Do not suspect PNA Left rectus sheath hematoma Chronic Hypoxic Respiratory Failure Hypothyroidism Hypercholesterolemia h/o CVA - Medrol taper - inhaled bronchodilators standing and PRN - O2 to keep SpO2 >90% - Consider to monitor off antibiotic coverage - DVT prophylaxis Dr Faith
[2016-12-17] MEDS: amLODIPine BESYLATE 10 MG TABLET (FP) PO SCH ×2 (15:45)
[2016-12-17] MEDS ORDERED: amLODIPine BESYLATE 5 MG TABLET (FP) PO ONE (18:45)
[2016-12-17] MEDS ORDERED: PT OWN MED DRAWER 7, Y5N ONE (21:31)
[2016-12-17] MEDS: ATORVASTATIN CA 20 MG TABLET (FP) PO SCH (21:36)
[2016-12-18] MEDS: methylPREDNISolone NA SUCC 40 MG/1 ML VIAL IVPB SCH ×3 (02:00→21:00)
[2016-12-18] MEDS: ALBUTEROL SO4 2.5/IPRATROPIUM 0.5 INH SOL 3 ML VIAL.NEB. NEB SCH ×4 (06:35→17:38)
[2016-12-18 07:22] LABS: MCH 32.5 pg (25.7-33.7); MEAN CELL VOLUME 95.5 fl (80-96); MEAN PLT VOLUME 7.2 fl (7.5-11.1); PLATELET COUNT 243 K/MM3 (134-434); RDW 13.1 % (11.6-15.6)
[2016-12-18] MEDS ORDERED: PT OWN MED DRAWER 7, Y5N ONE ×2 (08:52→20:40)
[2016-12-18] MEDS: BUDESONIDE/FORMETEROL FUMARATE 160/4.5 mcg INHALER IH SCH ×3 (09:01→21:00)
[2016-12-18] MEDS: THYROID 30 MG TABLET PO SCH (09:02)
[2016-12-18] MEDS: ASPIRIN/DIPYRIDAMOLE 25 MG/200 MG CAPSULE (FP) PO SCH ×2 (09:02→21:00)
[2016-12-18 09:53] LABS: METAMYELOCYTE 1 % (0-2); PLATELET ESTIMATE ADEQUATE (NORMAL)
--- NOTE | 2016-12-18 15:50 | PN ---
Progress Note, Physician History of Present Illness: pulmonary alert,feeling better,-resp distress - Current Medication List Current Medications: Active Medications Acetaminophen (Tylenol -) 650 mg PO Q4H PRN PRN Reason: FEVER OR PAIN Albuterol Sulfate (Ventolin Hfa Inhaler -) 2 puff IH Q4H PRN PRN Reason: SHORT OF BREATH/WHEEZING Last Admin: 12/15/16 18:10 Dose: 2 puff Albuterol/Ipratropium (Duoneb -) 1 amp NEB QIDR [facility] Last Admin: 12/18/16 12:03 Dose: 1 amp Atorvastatin Calcium (Lipitor -) 20 mg PO HS [facility] Last Admin: 12/17/16 21:36 Dose: 20 mg Budesonide/Formoterol Fumarate (Symbicort 160/4.5mcg -) 2 puff IH BID [facility] Last Admin: 12/18/16 09:07 Dose: 2 inh Dipyridamole/Aspirin (Aggrenox -) 1 combo PO BID [facility] Last Admin: 12/18/16 09:02 Dose: 1 combo Guaifenesin (Robitussin -) 10 ml PO Q4H PRN Last Admin: 12/12/16 17:52 Dose: 10 ml Methylprednisolone Sodium Succinate (Solu-Medrol -) 40 mg IVPB Q8H-IV [facility] Last Admin: 12/18/16 09:01 Dose: 40 mg Morphine Sulfate (Morphine Injection -) 2 mg IVPUSH Q4H PRN PRN Reason: PAIN Thyroid ([place] Thyroid -) 30 mg PO DAILY [facility] Last Admin: 12/18/16 09:02 Dose: 30 mg - Objective Vital Signs: Vital Signs Temperature 98.5 F 12/18/16 14:51 Pulse Rate 71 12/18/16 14:51 Respiratory Rate 20 12/18/16 14:51 Blood Pressure 133/55 12/18/16 14:51 O2 Sat by Pulse Oximetry (%) 91 L 12/18/16 12:06 Constitutional: Yes: Well Nourished, Calm Eyes: Yes: WNL HENT: Yes: WNL Neck: Yes: WNL Cardiovascular: Yes: Regular Rate and Rhythm, S1, S2 Respiratory: Yes: Rhonchi (few rhonchi) Gastrointestinal: Yes: Normal Bowel Sounds, Soft Extremities: Yes: WNL Edema: No Labs: CBC, BMP 12/18/16 06:00 12/17/16 06:00 INR, PTT INR 1.17 (0.82-1.09) H 12/11/16 12:05 Assessment/Plan A/P Acute COPD Exacerbation improving Chronic Hypoxic Respiratory Failure Hypothyroidism Hypercholesterolemia h/o CVA - continue medrol reduce to q12 - inhaled bronchodilators standing and PRN - O2 to keep SpO2 >90% - empiric antibiotic coverage - DVT prophylaxis DR ARIZMENDI Problem List - Problems (1) COPD exacerbation Code(s): J44.1 - CHRONIC OBSTRUCTIVE PULMONARY DISEASE W (ACUTE) EXACERBATION (2) Pneumonia Code(s): J18.9 - PNEUMONIA, UNSPECIFIED ORGANISM Qualifiers: Pneumonia type: due to unspecified organism Laterality: left Lung location: unspecified part of lung Qualified Code(s): J18.9 - Pneumonia, unspecified organism (3) Hypothyroid Code(s): E03.9 - HYPOTHYROIDISM, UNSPECIFIED
[2016-12-18] MEDS: ATORVASTATIN CA 20 MG TABLET (FP) PO SCH (21:00)
--- NOTE | 2016-12-18 21:04 | PN ---
Progress Note (short form) - Note Progress Note: Internal Medicine Follow up Pt seen and examined at the bedside abd pain is resolved but pt moving cautiously dyspnea is improved no chest pain or fever Gen: NAD on NC O2 CVS: RRR Lungs: air exhange sounds improved, no wheeze Abd: soft + tenderness and guarding LLQ, no CVA tenderness Ext: no edema Labs reviewed A/P 81 year old woman with PMhx of COPD, PPM placement, Hyperlipidemia, Hypothyrodism who presented with COPD exacerbation #COPD exacerbation taper to oral steroids as per pulmonary #LLQ Abd pain secondary to rectus sheath hematoma supportive care pain control Hgb stable on Aggrenox #Hypothrydism continue thyroid supplement #Hyperlidiemia Continue statin #Elevated BP continue amlodpine 5mg daily goal BP < 140/90 Alex Saleh DO Problem List - Problems (1) Bronchitis Code(s): J40 - BRONCHITIS, NOT SPECIFIED ACUTE OR CHRONIC (2) COPD exacerbation Code(s): J44.1 - CHRONIC OBSTRUCTIVE PULMONARY DISEASE W (ACUTE) EXACERBATION (3) Shortness of breath Code(s): R06.02 - SHORTNESS OF BREATH (4) History of permanent cardiac pacemaker placement Code(s): Z95.0 - PRESENCE OF CARDIAC PACEMAKER (5) Hypothyroid Code(s): E03.9 - HYPOTHYROIDISM, UNSPECIFIED
[2016-12-19] MEDS: ALBUTEROL SO4 2.5/IPRATROPIUM 0.5 INH SOL 3 ML VIAL.NEB. NEB SCH ×3 (00:32→18:48)
[2016-12-19] MEDS ORDERED: PT OWN MED DRAWER 7, Y5N ONE ×2 (08:58→21:41)
[2016-12-19] MEDS: BUDESONIDE/FORMETEROL FUMARATE 160/4.5 mcg INHALER IH SCH ×2 (09:00→21:51)
[2016-12-19] MEDS: methylPREDNISolone NA SUCC 40 MG/1 ML VIAL IVPB SCH (09:00)
[2016-12-19] MEDS: THYROID 30 MG TABLET PO SCH (09:02)
[2016-12-19] MEDS: ASPIRIN/DIPYRIDAMOLE 25 MG/200 MG CAPSULE (FP) PO SCH ×2 (09:02→21:51)
--- NOTE | 2016-12-19 12:31 | PN ---
Progress Note (short form) - Note Progress Note: Still with some congested cough, but breathing has overall improved. No CP. Comfortable on RA. Intake & Output 12/16/16 12/17/16 12/18/16 12/19/16 23:59 23:59 23:59 23:59 Intake Total 850 780 680 Balance 850 780 680 Last Vital Signs Temp Pulse Resp BP Pulse Ox 97.8 F 67 20 155/84 92 L 12/19/16 06:13 12/19/16 06:13 12/19/16 06:13 12/19/16 06:13 12/18/16 21:00 Active Medications Acetaminophen (Tylenol -) 650 mg PO Q4H PRN PRN Reason: FEVER OR PAIN Albuterol Sulfate (Ventolin Hfa Inhaler -) 2 puff IH Q4H PRN PRN Reason: SHORT OF BREATH/WHEEZING Last Admin: 12/15/16 18:10 Dose: 2 puff Albuterol/Ipratropium (Duoneb -) 1 amp NEB QIDR [facility] Last Admin: 12/19/16 06:24 Dose: 1 amp Atorvastatin Calcium (Lipitor -) 20 mg PO HS [facility] Last Admin: 12/18/16 21:00 Dose: 20 mg Budesonide/Formoterol Fumarate (Symbicort 160/4.5mcg -) 2 puff IH BID [facility] Last Admin: 12/19/16 09:00 Dose: 2 inh Dipyridamole/Aspirin (Aggrenox -) 1 combo PO BID [facility] Last Admin: 12/19/16 09:02 Dose: 1 combo Guaifenesin (Robitussin -) 10 ml PO Q4H PRN Last Admin: 12/12/16 17:52 Dose: 10 ml Methylprednisolone Sodium Succinate (Solu-Medrol -) 40 mg IVPB BID [facility] Last Admin: 12/19/16 09:00 Dose: 40 mg Thyroid ([place] Thyroid -) 30 mg PO DAILY [facility] Last Admin: 12/19/16 09:02 Dose: 30 mg Constitutional: Yes: NAD Eyes: Yes: WNL HENT: Yes: WNL Neck: Yes: WNL Cardiovascular: Yes: Regular Rate and Rhythm, S1, S2 Respiratory: Yes: Few scattered Rhonchi Gastrointestinal: Yes: Normal Bowel Sounds, Soft Extremities: Yes: WNL Edema: No Labs: Problem List - Problems (1) COPD exacerbation Code(s): J44.1 - CHRONIC OBSTRUCTIVE PULMONARY DISEASE W (ACUTE) EXACERBATION (2) Pneumonia Code(s): J18.9 - PNEUMONIA, UNSPECIFIED ORGANISM Qualifiers: Pneumonia type: due to unspecified organism Laterality: left Lung location: unspecified part of lung Qualified Code(s): J18.9 - Pneumonia, unspecified organism (3) Hypothyroid Code(s): E03.9 - HYPOTHYROIDISM, UNSPECIFIED Assessment/Plan Acute COPD Exacerbation improving Chronic Hypoxic Respiratory Failure Hypothyroidism Hypercholesterolemia h/o CVA - Change to Prednisone - Inhaled bronchodilators - Ambulate - Symbicort BID - No Pulmonary contraindication for D/C home Dr Faith
[2016-12-19] MEDS ORDERED: CEFUROXIME AXETIL 500 MG TABLET PO ONE (13:03)
--- NOTE | 2016-12-19 13:03 | PN ---
Progress Note, Physician Chief Complaint: The patient seen in bed. Still wheezing. Just started on Oral Prednisone. Still with cough. History of Present Illness: Admitted with acute respiratory infection and exacerbation of COPD. - Current Medication List Current Medications: Active Medications Acetaminophen (Tylenol -) 650 mg PO Q4H PRN PRN Reason: FEVER OR PAIN Albuterol Sulfate (Ventolin Hfa Inhaler -) 2 puff IH Q4H PRN PRN Reason: SHORT OF BREATH/WHEEZING Last Admin: 12/15/16 18:10 Dose: 2 puff Albuterol/Ipratropium (Duoneb -) 1 amp NEB QIDR [facility] Last Admin: 12/19/16 06:24 Dose: 1 amp Atorvastatin Calcium (Lipitor -) 20 mg PO HS [facility] Last Admin: 12/18/16 21:00 Dose: 20 mg Budesonide/Formoterol Fumarate (Symbicort 160/4.5mcg -) 2 puff IH BID [facility] Last Admin: 12/19/16 09:00 Dose: 2 inh Dipyridamole/Aspirin (Aggrenox -) 1 combo PO BID [facility] Last Admin: 12/19/16 09:02 Dose: 1 combo Guaifenesin (Robitussin -) 10 ml PO Q4H PRN Last Admin: 12/12/16 17:52 Dose: 10 ml Prednisone (Deltasone -) 40 mg PO DAILY [facility] Thyroid ([place] Thyroid -) 30 mg PO DAILY [facility] Last Admin: 12/19/16 09:02 Dose: 30 mg - Objective Vital Signs: Vital Signs Temperature 97.8 F 12/19/16 06:13 Pulse Rate 67 12/19/16 06:13 Respiratory Rate 20 12/19/16 06:13 Blood Pressure 155/84 12/19/16 06:13 O2 Sat by Pulse Oximetry (%) 92 L 12/18/16 21:00 Constitutional: Yes: Mild Distress Eyes: Yes: Conjunctiva Clear HENT: Yes: Atraumatic Neck: Yes: Supple, Trachea Midline Cardiovascular: Yes: Regular Rate and Rhythm, S1, S2 Respiratory: Yes: Regular, Rhonchi, Wheezes Gastrointestinal: Yes: Normal Bowel Sounds, Soft. No: Tenderness Genitourinary: No: CVA Tenderness - Left, CVA Tenderness - Right Labs: CBC, BMP 12/18/16 06:00 12/17/16 06:00 INR, PTT INR 1.17 (0.82-1.09) H 12/11/16 12:05 Problem List - Problems (1) Bronchitis Code(s): J40 - BRONCHITIS, NOT SPECIFIED ACUTE OR CHRONIC (2) COPD exacerbation Code(s): J44.1 - CHRONIC OBSTRUCTIVE PULMONARY DISEASE W (ACUTE) EXACERBATION (3) Pneumonia Code(s): J18.9 - PNEUMONIA, UNSPECIFIED ORGANISM Qualifiers: Pneumonia type: due to unspecified organism Laterality: left Lung location: unspecified part of lung Qualified Code(s): J18.9 - Pneumonia, unspecified organism (4) Shortness of breath Code(s): R06.02 - SHORTNESS OF BREATH (5) COPD (chronic obstructive pulmonary disease) Code(s): J44.9 - CHRONIC OBSTRUCTIVE PULMONARY DISEASE, UNSPECIFIED Assessment/Plan Patient just switched to Oral steroids. Still O2 sat at room air only 87%. Will continue oral steroids. Oral Ceftin. Advised the aptient to be ambulatory. Will need Home O2. Radha Barrera MD
[2016-12-19] MEDS: predniSONE 20 MG TABLET (UD) PO SCH (14:18)
[2016-12-19] MEDS: ATORVASTATIN CA 20 MG TABLET (FP) PO SCH (21:51)
[2016-12-20] MEDS: ALBUTEROL SO4 2.5/IPRATROPIUM 0.5 INH SOL 3 ML VIAL.NEB. NEB SCH ×2 (00:21→06:25)
[2016-12-20] MEDS ORDERED: PT OWN MED DRAWER 7, Y5N ONE ×2 (08:40→08:56)
[2016-12-20] MEDS: ASPIRIN/DIPYRIDAMOLE 25 MG/200 MG CAPSULE (FP) PO SCH (09:00)
[2016-12-20] MEDS: BUDESONIDE/FORMETEROL FUMARATE 160/4.5 mcg INHALER IH SCH (09:00)
[2016-12-20] MEDS: THYROID 30 MG TABLET PO SCH (09:01)
[2016-12-20] MEDS: predniSONE 20 MG TABLET (UD) PO SCH (09:01)
--- NOTE | 2016-12-20 13:05 | PN ---
Progress Note, Physician History of Present Illness: pulmonary alert,feeling better,less congested,+cough - Current Medication List Current Medications: Active Medications Acetaminophen (Tylenol -) 650 mg PO Q4H PRN PRN Reason: FEVER OR PAIN Albuterol Sulfate (Ventolin Hfa Inhaler -) 2 puff IH Q4H PRN PRN Reason: SHORT OF BREATH/WHEEZING Last Admin: 12/15/16 18:10 Dose: 2 puff Atorvastatin Calcium (Lipitor -) 20 mg PO HS [facility] Last Admin: 12/19/16 21:51 Dose: 20 mg Budesonide/Formoterol Fumarate (Symbicort 160/4.5mcg -) 2 puff IH BID [facility] Last Admin: 12/20/16 09:00 Dose: 2 inh Dipyridamole/Aspirin (Aggrenox -) 1 combo PO BID [facility] Last Admin: 12/20/16 09:00 Dose: 1 combo Guaifenesin (Robitussin -) 10 ml PO Q4H PRN Last Admin: 12/12/16 17:52 Dose: 10 ml Prednisone (Deltasone -) 40 mg PO DAILY [facility] Last Admin: 12/20/16 09:01 Dose: 40 mg Thyroid ([place] Thyroid -) 30 mg PO DAILY [facility] Last Admin: 12/20/16 09:01 Dose: 30 mg - Objective Vital Signs: Vital Signs Temperature 97.7 F 12/20/16 05:42 Pulse Rate 72 12/20/16 10:55 Respiratory Rate 20 12/20/16 08:07 Blood Pressure 145/70 12/20/16 05:42 O2 Sat by Pulse Oximetry (%) 94 L 12/20/16 10:55 Constitutional: Yes: Well Nourished, Calm Eyes: Yes: WNL HENT: Yes: WNL Neck: Yes: WNL Cardiovascular: Yes: Regular Rate and Rhythm, S1, S2 Respiratory: Yes: Wheezes (few wheezes) Gastrointestinal: Yes: Normal Bowel Sounds, Soft Extremities: Yes: WNL Edema: No Labs: CBC, BMP Assessment/Plan A/P Acute COPD Exacerbation improving Chronic Hypoxic Respiratory Failure Hypothyroidism Hypercholesterolemia h/o CVA - prednisone - inhaled bronchodilators standing and PRN - O2 - empiric antibiotic coverage - DVT prophylaxis DR ARIZMENDI Problem List - Problems (1) COPD exacerbation Code(s): J44.1 - CHRONIC OBSTRUCTIVE PULMONARY DISEASE W (ACUTE) EXACERBATION (2) Pneumonia Code(s): J18.9 - PNEUMONIA, UNSPECIFIED ORGANISM Qualifiers: Pneumonia type: due to unspecified organism Laterality: left Lung location: unspecified part of lung Qualified Code(s): J18.9 - Pneumonia, unspecified organism (3) Hypothyroid Code(s): E03.9 - HYPOTHYROIDISM, UNSPECIFIED
--- NOTE | 2016-12-20 14:43 | PN ---
Progress Note, Physician Chief Complaint: The patient seen in bed. Feeling much better. No Chest pain. Patient very stubborn about not using o2. De-sating frequently ( 80's) Cough better. Tolerating current medications. History of Present Illness: Admitted with acute respiratory infection and exacerbation of COPD. Feeling much better. No fever. Still with minimal cough. - Current Medication List Current Medications: Active Medications Acetaminophen (Tylenol -) 650 mg PO Q4H PRN PRN Reason: FEVER OR PAIN Albuterol Sulfate (Ventolin Hfa Inhaler -) 2 puff IH Q4H PRN PRN Reason: SHORT OF BREATH/WHEEZING Last Admin: 12/15/16 18:10 Dose: 2 puff Atorvastatin Calcium (Lipitor -) 20 mg PO HS [facility] Last Admin: 12/19/16 21:51 Dose: 20 mg Budesonide/Formoterol Fumarate (Symbicort 160/4.5mcg -) 2 puff IH BID [facility] Last Admin: 12/20/16 09:00 Dose: 2 inh Dipyridamole/Aspirin (Aggrenox -) 1 combo PO BID [facility] Last Admin: 12/20/16 09:00 Dose: 1 combo Guaifenesin (Robitussin -) 10 ml PO Q4H PRN Last Admin: 12/12/16 17:52 Dose: 10 ml Prednisone (Deltasone -) 40 mg PO DAILY [facility] Last Admin: 12/20/16 09:01 Dose: 40 mg Thyroid ([place] Thyroid -) 30 mg PO DAILY [facility] Last Admin: 12/20/16 09:01 Dose: 30 mg - Objective Vital Signs: Vital Signs Temperature 97.7 F 12/20/16 05:42 Pulse Rate 72 12/20/16 10:55 Respiratory Rate 20 12/20/16 08:07 Blood Pressure 145/70 12/20/16 05:42 O2 Sat by Pulse Oximetry (%) 94 L 12/20/16 10:55 Constitutional: Yes: Well Nourished, No Distress Eyes: Yes: Conjunctiva Clear HENT: Yes: Atraumatic Neck: Yes: Trachea Midline Cardiovascular: Yes: Regular Rate and Rhythm, S1, S2 Respiratory: Yes: Regular, CTA Bilaterally, Rhonchi. No: Wheezes Gastrointestinal: Yes: Normal Bowel Sounds, Soft Labs: CBC, BMP 12/18/16 06:00 12/17/16 06:00 INR, PTT INR 1.17 (0.82-1.09) H 12/11/16 12:05 Problem List - Problems (1) Bronchitis Code(s): J40 - BRONCHITIS, NOT SPECIFIED ACUTE OR CHRONIC (2) COPD exacerbation Code(s): J44.1 - CHRONIC OBSTRUCTIVE PULMONARY DISEASE W (ACUTE) EXACERBATION (3) Pneumonia Code(s): J18.9 - PNEUMONIA, UNSPECIFIED ORGANISM Qualifiers: Pneumonia type: due to unspecified organism Laterality: left Lung location: unspecified part of lung Qualified Code(s): J18.9 - Pneumonia, unspecified organism (4) Shortness of breath Code(s): R06.02 - SHORTNESS OF BREATH (5) COPD (chronic obstructive pulmonary disease) Code(s): J44.9 - CHRONIC OBSTRUCTIVE PULMONARY DISEASE, UNSPECIFIED Assessment/Plan Patient admitted with Acute exacerbation of COPD. and Acute respiratory infection. Was on IV steroids/ and ABx and now on PO Ceftin and Prednisone. Will continue Prednisone 40 mg daily until I see her in office next week. Ceftin 500 mg BID The patient will continue Home O2. Detailed instructions given to the patient about the use of oO2. F/u In my office next week. Radha Barrera MD
[2016-12-20 18:09] VITALS: BP 118/60; PULSE 94; TEMP 97.6
== END 2016-12-20 19:11 | disposition home or self-care (01) | DRG 191 ==
LOC: JER 11:02 → JERBED 14:26 → J7W 16:42
PROVIDERS: ADMIT Internal Medicine Nephrology; ATTEND Internal Medicine Nephrology
DX: J44.1 Chronic obstructive pulmonary disease with (acute) exacerbation (principal); J96.11 Chronic respiratory failure with hypoxia; E03.9 Hypothyroidism, unspecified; Z86.73 Personal history of transient ischemic attack (TIA), and cerebral infarction without residual deficits; E78.5 Hyperlipidemia, unspecified; Z95.0 Presence of cardiac pacemaker; Z87.891 Personal history of nicotine dependence; J06.9 Acute upper respiratory infection, unspecified
CPT/HCPCS: 36415; 71010-TC; 71020-TC; 74177-TC; 80048; 80053; 81003; 81015; 83605; 83690; 83735; 83880; 84100; 85025; 85027; 85610; 87086; 93005; 93010; 94010; 94640; 99284-25; Q9967

== ENCOUNTER 2020-05-12 09:57 | Emergency (ER) | payer OTHER | END 2020-05-12 10:23 | disposition home or self-care (01) | LOC: JVIRT 09:57 | DX: R05 Cough (principal); U07.1 COVID-19 | CPT/HCPCS: C9803; G2012-GT; U0003 ==

== ENCOUNTER 2020-06-14 13:53 | Emergency (ER) | payer OTHER ==
[2020-06-14 14:00] VITALS: BMI 27.4
[2020-06-14 15:59] LABS: BASO % 0.6 % (0-2.0); EOS % 2.1 % (0-4.5); HEMOGLOBIN 13.1 GM/dL (10.7-15.3); LYMPH % 21.3 % (8-40); MCH 32.2 pg (25.7-33.7); MCHC 33.5 g/dl (32.0-36.0); MEAN CELL VOLUME 95.9 fl (80-96); MONO % 11.4 % (3.8-10.2); NEUT % 64.6 % (42.8-82.8); PLATELET COUNT 293 K/MM3 (134-434); RBC 4.06 M/mm3 (3.60-5.2); WHITE BLOOD COUNT 7.9 K/mm3 (4.0-10.0)
[2020-06-14 16:14] LABS: INR 1.08 (0.83-1.09); PROTHROMBIN TIME (PATIENT) 13.3 SEC (9.7-13.0)
[2020-06-14 16:17] LABS: CHLORIDE 103 mmol/L (98-107); POTASSIUM 4.3 mmol/L (3.5-5.1); SODIUM 140 mmol/L (136-145)
[2020-06-14 16:19] LABS: CALCIUM 10.1 mg/dL (8.5-10.1)
[2020-06-14 16:20] LABS: ALBUMIN 3.8 g/dl (3.4-5.0); ANION GAP 7 MMOL/L (8-16); BLOOD UREA NITROGEN 23.4 mg/dL (7-18); CO2 29 mmol/L (21-32); GLUCOSE,RANDOM 79 mg/dL (74-106); LIPASE 63 U/L (73-393)
[2020-06-14 16:23] LABS: CREATININE 0.9 mg/dL (0.55-1.3); SGOT/AST 15 U/L (15-37); SGPT/ALT 17 U/L (13-61)
[2020-06-14 16:24] LABS: BILIRUBIN,TOTAL 0.6 mg/dL (0.2-1); LDH 249 U/L (84-246); TOT PROT 7.1 g/dl (6.4-8.2)
[2020-06-14 16:26] LABS: ALK PHOS 99 U/L (45-117)
[2020-06-14 16:28] LABS: N-TERMINAL BNP 546.7 pg/ml (5-450)
[2020-06-14 18:05] VITALS: TEMP 98.8
[2020-06-14 20:42] VITALS: BP 151/83; PULSE 76
== END 2020-06-14 20:48 | disposition home or self-care (01) ==
LOC: JER 13:53
DX: R07.9 Chest pain, unspecified (principal)
CPT/HCPCS: 36415; 71045-TC-FY; 71275-TC; 80053; 82550; 82728; 83615; 83690; 83880; 84484; 85025; 85379; 85610; 85730; 86140; 93005; 93010; 99285-25; Q9967

== ENCOUNTER 2020-12-29 11:08 | Inpatient (IN) | payer OTHER ==
[2020-12-29 11:22] VITALS: BMI 27.4
[2020-12-29] MEDS ORDERED: ALBUTEROL SO4 2.5/IPRATROPIUM 0.5 INH SOL 3 ML VIAL.NEB. NEB ONE ×2 (11:48→11:52)
[2020-12-29 12:20] LABS: BASO % 0.7 % (0-2.0); EOS % 0.8 % (0-4.5); HEMATOCRIT 39.8 % (32.4-45.2); HEMOGLOBIN 13.3 GM/dL (10.7-15.3); LYMPH % 12.8 % (8-40); MCH 31.9 pg (25.7-33.7); MCHC 33.4 g/dl (32.0-36.0); MEAN CELL VOLUME 95.5 fl (80-96); MEAN PLT VOLUME 7.4 fl (7.5-11.1); MONO % 8.1 % (3.8-10.2); NEUT % 77.6 % (42.8-82.8); PLATELET COUNT 233 10^3/uL (134-434); RBC 4.16 M/mm3 (3.60-5.2); RDW 13.8 % (11.6-15.6); WHITE BLOOD COUNT 8.2 K/mm3 (4.0-10.0)
[2020-12-29 12:47] LABS: CHLORIDE 106 mmol/L (98-107); SODIUM 140 mmol/L (136-145)
[2020-12-29 12:49] LABS: CALCIUM 8.9 mg/dL (8.5-10.1)
[2020-12-29 12:50] LABS: ALBUMIN 3.7 g/dl (3.4-5.0); ANION GAP 6 MMOL/L (8-16); BLOOD UREA NITROGEN 15.3 mg/dL (7-18); CO2 29 mmol/L (21-32); GLUCOSE,RANDOM 126 mg/dL (74-106); MAGNESIUM 2.2 mg/dL (1.8-2.4)
[2020-12-29 12:53] LABS: CREATININE 0.7 mg/dL (0.55-1.3); SGOT/AST 14 U/L (15-37); SGPT/ALT 17 U/L (13-61)
[2020-12-29 12:54] LABS: BILIRUBIN,TOTAL 0.5 mg/dL (0.2-1); TOT PROT 6.8 g/dl (6.4-8.2)
[2020-12-29 12:56] LABS: ALK PHOS 107 U/L (45-117)
[2020-12-29 12:58] LABS: N-TERMINAL BNP 512.8 pg/ml (5-450)
[2020-12-29] MEDS ORDERED: ALBUTEROL SO4 2.5/IPRATROPIUM 0.5 INH SOL 3 ML VIAL.NEB. NEB PRN (15:30)
[2020-12-29] MEDS ORDERED: ACETAMINOPHEN 325 MG TABLET (FP) PO PRN (15:30)
[2020-12-29] MEDS ORDERED: ATORVASTATIN CA 40 MG TABLET (FP) PO SCH (22:00)
[2020-12-29] MEDS ORDERED: ASPIRIN/DIPYRIDAMOLE 25 MG/200 MG CAPSULE ONE (22:27)
[2020-12-29] MEDS ORDERED: ATORVASTATIN CA 40 MG TABLET (FP) ONE (22:27)
[2020-12-29] MEDS ORDERED: HEPARIN NA (PORCINE) 5,000 UNITS/ML 1ML VIAL ONE (22:27)
[2020-12-29] MEDS: ASPIRIN/DIPYRIDAMOLE 25 MG/200 MG CAPSULE PO SCH (23:06)
[2020-12-29] MEDS: HEPARIN NA (PORCINE) 5,000 UNITS/ML 1ML VIAL SQ SCH (23:06)
[2020-12-30 05:53] VITALS: TEMP 98.6
[2020-12-30 08:00] LABS: HEMATOCRIT 37.1 % (32.4-45.2); HEMOGLOBIN 12.6 GM/dL (10.7-15.3); MCH 32.4 pg (25.7-33.7); MCHC 33.9 g/dl (32.0-36.0); MEAN CELL VOLUME 95.5 fl (80-96); PLATELET COUNT 234 10^3/uL (134-434); RBC 3.88 M/mm3 (3.60-5.2); RDW 13.9 % (11.6-15.6); WHITE BLOOD COUNT 8.4 K/mm3 (4.0-10.0)
[2020-12-30 08:14] LABS: CALCIUM 8.6 mg/dL (8.5-10.1)
[2020-12-30 08:15] LABS: ALBUMIN 3.4 g/dl (3.4-5.0)
[2020-12-30 08:18] LABS: BILIRUBIN,TOTAL 0.7 mg/dL (0.2-1); CREATININE 0.7 mg/dL (0.55-1.3)
[2020-12-30 08:19] LABS: TOT PROT 6.3 g/dl (6.4-8.2)
[2020-12-30] MEDS ORDERED: TIOTROPIUM BROMIDE 2.5 MCG (SPIRIVA) RESPIMAT INHALER IH SCH (10:00)
[2020-12-30] MEDS ORDERED: FUROSEMIDE 40 MG/4 ML INJECTABLE VIAL IVPUSH SCH (10:00)
[2020-12-30 10:13] VITALS: BP 139/73; PULSE 70
[2020-12-30] MEDS: HEPARIN NA (PORCINE) 5,000 UNITS/ML 1ML VIAL SQ SCH (10:19)
[2020-12-30] MEDS: ASPIRIN/DIPYRIDAMOLE 25 MG/200 MG CAPSULE PO SCH (10:19)
[2020-12-30 21:06] LABS: SARS-CoV-2 NAA Not Detected (Not Detected)
== END 2020-12-30 13:20 | disposition home or self-care (01) | DRG 192 ==
LOC: JER 11:08 → JERBED 14:30 → OBSVTOIN 15:27 → J4W 12-30 00:51
PROVIDERS: ADMIT Family Medicine; ATTEND Family Medicine
DX: J44.1 Chronic obstructive pulmonary disease with (acute) exacerbation (principal); I10 Essential (primary) hypertension; E78.00 Pure hypercholesterolemia, unspecified; Z86.73 Personal history of transient ischemic attack (TIA), and cerebral infarction without residual deficits; Z95.0 Presence of cardiac pacemaker; E03.9 Hypothyroidism, unspecified; R07.89 Other chest pain
CPT/HCPCS: 36415; 71046-TC-FY; 80053; 80061; 82550; 83036; 83721; 83735; 83880; 84484; 85025; 85027; 93005; 93010; 99285-25; C9803; G0378; J1644; U0003; U0005

== ENCOUNTER 2021-12-25 21:08 | Observation (INO) | payer OTHER ==
[2021-12-25 21:15] VITALS: BMI 27.4
[2021-12-25 22:30] LABS: BASO % 0.6 % (0-2.0); HEMATOCRIT 36.7 % (32.4-45.2); HEMOGLOBIN 12.3 GM/dL (10.7-15.3); LYMPH % 13.6 % (8-40); MCHC 33.5 g/dl (32.0-36.0); MEAN CELL VOLUME 95.6 fl (80-96); MEAN PLT VOLUME 7.1 fl (7.5-11.1); NEUT % 68.8 % (42.8-82.8); PLATELET COUNT 239 10^3/uL (134-434); RBC 3.84 M/mm3 (3.60-5.2); RDW 14.3 % (11.6-15.6); WHITE BLOOD COUNT 9.5 K/mm3 (4.0-10.0)
[2021-12-25 22:39] LABS: INR 1.15 (0.83-1.09); PROTHROMBIN TIME (PATIENT) 13.3 SEC (9.7-13.0)
[2021-12-25 22:41] LABS: ACTIVATED PTT 29.7 SECONDS (25.2-36.5)
[2021-12-25 22:55] LABS: ALBUMIN 3.2 g/dl (3.4-5.0); CALCIUM 9.1 mg/dL (8.5-10.1)
[2021-12-25 22:56] LABS: BLOOD UREA NITROGEN 18.3 mg/dL (7-18)
[2021-12-25 22:58] LABS: CREATININE 0.8 mg/dL (0.55-1.3)
[2021-12-25 23:00] LABS: BILIRUBIN,TOTAL 0.6 mg/dL (0.2-1); TOT PROT 6.6 g/dl (6.4-8.2)
[2021-12-25] MEDS ORDERED: ALBUTEROL SO4 2.5/IPRATROPIUM 0.5 INH SOL 3 ML VIAL.NEB. NEB ONE (23:38)
[2021-12-25] MEDS ORDERED: methylPREDNISolone NA SUCC 125 MG/2 ML VIAL IVPUSH ONE (23:39)
[2021-12-26] MEDS ORDERED: ALBUTEROL SO4 2.5/IPRATROPIUM 0.5 INH SOL 3 ML VIAL.NEB. NEB ONE ×2 (00:19→15:21)
[2021-12-26] MEDS ORDERED: methylPREDNISolone NA SUCC 125 MG/2 ML VIAL ONE (00:20)
[2021-12-26 06:52] LABS: HEMATOCRIT 36.7 % (32.4-45.2); HEMOGLOBIN 12.2 GM/dL (10.7-15.3); MCHC 33.1 g/dl (32.0-36.0); MEAN CELL VOLUME 96.4 fl (80-96); MEAN PLT VOLUME 7.5 fl (7.5-11.1); PLATELET COUNT 220 10^3/uL (134-434); RDW 14.5 % (11.6-15.6); WHITE BLOOD COUNT 8.5 K/mm3 (4.0-10.0)
[2021-12-26 07:19] LABS: CALCIUM 9.1 mg/dL (8.5-10.1)
[2021-12-26 07:20] LABS: ALBUMIN 3.3 g/dl (3.4-5.0); BLOOD UREA NITROGEN 18.7 mg/dL (7-18)
[2021-12-26 07:23] LABS: CREATININE 0.7 mg/dL (0.55-1.3)
[2021-12-26 07:24] LABS: BILIRUBIN,TOTAL 0.4 mg/dL (0.2-1); TOT PROT 6.8 g/dl (6.4-8.2)
[2021-12-26 08:48] LABS: ANISOCYTOSIS 1+; MACROCYTOSIS 0
[2021-12-26] MEDS ORDERED: ASPIRIN/DIPYRIDAMOLE 25 MG/200 MG CAPSULE ONE (10:22)
[2021-12-26] MEDS ORDERED: GABAPENTIN 100 MG CAPSULE ONE (10:22)
[2021-12-26] MEDS ORDERED: MECLIZINE HCL 12.5 MG TABLET ONE (10:22)
[2021-12-26] MEDS ORDERED: FUROSEMIDE 40 MG/4 ML INJECTABLE VIAL ONE (10:23)
[2021-12-26] MEDS ORDERED: methylPREDNISolone NA SUCC 40 MG/1 ML VIAL ONE ×2 (10:23→17:58)
[2021-12-26] MEDS: ASPIRIN/DIPYRIDAMOLE 25 MG/200 MG CAPSULE PO SCH ×2 (10:47→21:59)
[2021-12-26] MEDS: MECLIZINE HCL 12.5 MG TABLET PO SCH ×2 (10:47→21:59)
[2021-12-26] MEDS: GABAPENTIN 100 MG CAPSULE PO SCH ×2 (10:47→21:59)
[2021-12-26] MEDS: methylPREDNISolone NA SUCC 40 MG/1 ML VIAL IVPUSH SCH ×2 (10:48→18:05)
[2021-12-26] MEDS: FUROSEMIDE 40 MG/4 ML INJECTABLE VIAL IVPUSH SCH (10:48)
[2021-12-26] MEDS: THYROID 30 MG TABLET PO SCH (10:48)
[2021-12-26] MEDS: ALBUTEROL SO4 2.5/IPRATROPIUM 0.5 INH SOL 3 ML VIAL.NEB. NEB SCH ×3 (12:15→20:50)
[2021-12-26] MEDS ORDERED: ALBUTEROL SO4 0.083% IH SOL 2.5 MG/3 ML VIAL.NEB. NEB PRN (12:48)
[2021-12-26] MEDS ORDERED: AZITHROMYCIN 250 MG TABLET ONE (13:08)
[2021-12-26] MEDS: AZITHROMYCIN 250 MG TABLET PO SCH (13:12)
[2021-12-26] MEDS ORDERED: ATORVASTATIN CA 40 MG TABLET (FP) PO SCH (22:00)
[2021-12-26] MEDS: BUDESONIDE/FORMETEROL FUMARATE 160/4.5 mcg INHALER IH SCH (22:05)
[2021-12-27] MEDS: methylPREDNISolone NA SUCC 40 MG/1 ML VIAL IVPUSH SCH (02:14)
[2021-12-27] MEDS: THYROID 30 MG TABLET PO SCH (06:21)
[2021-12-27] MEDS: ALBUTEROL SO4 2.5/IPRATROPIUM 0.5 INH SOL 3 ML VIAL.NEB. NEB SCH ×3 (08:25→15:58)
[2021-12-27] MEDS: GABAPENTIN 100 MG CAPSULE PO SCH (09:15)
[2021-12-27] MEDS: FUROSEMIDE 40 MG/4 ML INJECTABLE VIAL IVPUSH SCH (09:16)
[2021-12-27] MEDS: MECLIZINE HCL 12.5 MG TABLET PO SCH (09:16)
[2021-12-27] MEDS: ASPIRIN/DIPYRIDAMOLE 25 MG/200 MG CAPSULE PO SCH (09:16)
[2021-12-27] MEDS: AZITHROMYCIN 250 MG TABLET PO SCH (09:19)
[2021-12-27] MEDS: BUDESONIDE/FORMETEROL FUMARATE 160/4.5 mcg INHALER IH SCH (09:20)
[2021-12-27] MEDS ORDERED: AZITHROMYCIN 250 MG TABLET PO SCH (10:00)
[2021-12-27] MEDS ORDERED: methylPREDNISolone NA SUCC 40 MG/1 ML VIAL IVPUSH SCH (10:00)
[2021-12-27 17:55] VITALS: PULSE 78
[2021-12-27 18:09] VITALS: BP 156/66; TEMP 98.9
[2021-12-27] MEDS ORDERED: predniSONE 20 MG TABLET (UD) PO SCH (22:00)
== END 2021-12-27 18:37 | disposition home or self-care (01) ==
LOC: JER 21:08 → JERBED 12-26 00:14 → J4W 12-26 18:51
PROVIDERS: ADMIT Internal Medicine; ATTEND Family Medicine
PROC: 3E0F7GC Introduction of Other Therapeutic Substance into Respiratory Tract, Via Natural or Artificial Opening (ICD-10-PCS; principal; 2021-12-26)
PROC: 3E023GC Introduction of Other Therapeutic Substance into Muscle, Percutaneous Approach (ICD-10-PCS; 2021-12-26)
DX: J20.9 Acute bronchitis, unspecified (principal); J96.11 Chronic respiratory failure with hypoxia; J44.9 Chronic obstructive pulmonary disease, unspecified; E03.9 Hypothyroidism, unspecified; I10 Essential (primary) hypertension; Z87.891 Personal history of nicotine dependence; Z95.0 Presence of cardiac pacemaker; E78.00 Pure hypercholesterolemia, unspecified; Z29.8 Encounter for other specified prophylactic measures; Z86.73 Personal history of transient ischemic attack (TIA), and cerebral infarction without residual deficits
CPT/HCPCS: 0241U-QW; 36415; 71045-TC-FY; 71250-TC; 80053; 83880; 84443; 84484; 85025; 85610; 85730; 87899; 93005; 93010; 94640; 96374; 96375; 96376; 99285-25; C9803-CS; G0378; U0003; U0005

== ENCOUNTER 2022-07-13 12:05 | Observation (INO) | payer OTHER ==
[2022-07-13] MEDS ORDERED: methylPREDNISolone NA SUCC 125 MG/2 ML VIAL IVPUSH ONE (12:40)
[2022-07-13] MEDS ORDERED: methylPREDNISolone NA SUCC 125 MG/2 ML VIAL ONE (12:50)
[2022-07-13] MEDS: ALBUTEROL SO4 2.5/IPRATROPIUM 0.5 INH SOL 3 ML VIAL.NEB. NEB SCH ×2 (13:16→20:00)
[2022-07-13 13:19] LABS: BASO % 0.4 % (0-2.0); EOS % 1.3 % (0-4.5); LYMPH % 14.3 % (8-40); MCH 32.5 pg (25.7-33.7); MCHC 34.3 g/dl (32.0-36.0); MEAN PLT VOLUME 7.2 fl (7.5-11.1); MONO % 12.2 % (3.8-10.2); NEUT % 71.8 % (42.8-82.8); PLATELET COUNT 198 10^3/uL (134-434); RBC 3.69 M/mm3 (3.60-5.2); RDW 14.4 % (11.6-15.6); WHITE BLOOD COUNT 6.4 K/mm3 (4.0-10.0)
[2022-07-13 13:38] LABS: ALBUMIN 3.1 g/dl (3.4-5.0); CALCIUM 8.8 mg/dL (8.5-10.1)
[2022-07-13 13:41] LABS: CREATININE 0.8 mg/dL (0.55-1.3)
[2022-07-13] MEDS ORDERED: ALBUTEROL SO4 2.5/IPRATROPIUM 0.5 INH SOL 3 ML VIAL.NEB. NEB ONE (13:41)
[2022-07-13 13:43] LABS: BILIRUBIN,TOTAL 0.4 mg/dL (0.2-1); TOT PROT 6.5 g/dl (6.4-8.2)
[2022-07-13 14:59] LABS: EPI CELLS 16 /uL (0-25.1); HYALINE CASTS 0 /uL (0-3.1); URINE APPEARANCE CLEAR; URINE BACTERIA 130 /uL (0-1359); URINE BILIRUBIN NEGATIVE (NEGATIVE); URINE COLOR YELLOW; URINE GLUCOSE (UA) NEGATIVE (NEGATIVE); URINE KETONE NEGATIVE (NEGATIVE); URINE LEUK ESTERASE 1+ (NEGATIVE); URINE NITRITE NEGATIVE (NEGATIVE); URINE PROTEIN NEGATIVE (NEGATIVE); URINE RBC 9 /uL (0-23.9); URINE UROBILINOGEN 0.2 mg/dL (0.2-1.0); URINE WBC 28 /uL (0-25.8)
[2022-07-13] MEDS ORDERED: AZITHROMYCIN IVPB 500 MG in DEXTROSE 5%-WATER - 250 ML IVPB ONE (15:26)
[2022-07-13] MEDS ORDERED: AZITHROMYCIN IVPB 500 MG/250 ML BAG IVPB ONE (15:30)
[2022-07-13] MEDS ORDERED: MECLIZINE HCL 12.5 MG TABLET PO PRN (17:53)
[2022-07-13 18:23] VITALS: BMI 27.4
[2022-07-13] MEDS: GABAPENTIN 100 MG CAPSULE PO SCH (21:27)
[2022-07-13] MEDS: ASPIRIN/DIPYRIDAMOLE 25 MG/200 MG CAPSULE PO SCH (21:27)
[2022-07-13] MEDS: FLUTICASONE/SALMETEROL 100 MCG/50 MCG DISKUS IH SCH (21:28)
[2022-07-14] MEDS ORDERED: THYROID 30 MG TABLET PO SCH (07:00)
[2022-07-14] MEDS: ALBUTEROL SO4 2.5/IPRATROPIUM 0.5 INH SOL 3 ML VIAL.NEB. NEB SCH ×3 (07:25→15:23)
[2022-07-14 07:47] VITALS: RESP 20
[2022-07-14] MEDS: GABAPENTIN 100 MG CAPSULE PO SCH (09:17)
[2022-07-14] MEDS: FLUTICASONE/SALMETEROL 100 MCG/50 MCG DISKUS IH SCH (09:17)
[2022-07-14] MEDS: ASPIRIN/DIPYRIDAMOLE 25 MG/200 MG CAPSULE PO SCH (09:25)
[2022-07-14] MEDS ORDERED: AZITHROMYCIN 250 MG TABLET PO SCH (10:00)
[2022-07-14] MEDS ORDERED: predniSONE 20 MG TABLET (UD) PO SCH (10:00)
[2022-07-14] MEDS ORDERED: FUROSEMIDE 20 MG TABLET (FP) PO SCH (10:00)
[2022-07-14] MEDS ORDERED: ATORVASTATIN CA 40 MG TABLET (FP) PO SCH (10:00)
[2022-07-14 10:22] LABS: BASO % 0.1 % (0-2.0); HEMATOCRIT 33.4 % (32.4-45.2); HEMOGLOBIN 11.5 GM/dL (10.7-15.3); MCH 32.5 pg (25.7-33.7); MCHC 34.3 g/dl (32.0-36.0); MEAN CELL VOLUME 94.8 fl (80-96); MEAN PLT VOLUME 7.5 fl (7.5-11.1); NEUT % 72.9 % (42.8-82.8); PLATELET COUNT 194 10^3/uL (134-434); RBC 3.53 M/mm3 (3.60-5.2); RDW 14.2 % (11.6-15.6); WHITE BLOOD COUNT 7.4 K/mm3 (4.0-10.0)
[2022-07-14 10:46] LABS: CALCIUM 9.2 mg/dL (8.5-10.1)
[2022-07-14 10:47] LABS: BLOOD UREA NITROGEN 19.8 mg/dL (7-18)
[2022-07-14 10:50] LABS: CREATININE 0.7 mg/dL (0.55-1.3)
[2022-07-14 11:32] LABS: PH,URINE 5.5 (5.0-8.0); URINE APPEARANCE CLEAR; URINE BILIRUBIN NEGATIVE (NEGATIVE); URINE COLOR YELLOW; URINE GLUCOSE (UA) 1+ (NEGATIVE); URINE KETONE NEGATIVE (NEGATIVE); URINE LEUK ESTERASE NEGATIVE (NEGATIVE); URINE NITRITE NEGATIVE (NEGATIVE); URINE PROTEIN NEGATIVE (NEGATIVE); URINE UROBILINOGEN 0.2 mg/dL (0.2-1.0)
[2022-07-14 14:57] VITALS: BP 129/64; PULSE 79; TEMP 98.5
== END 2022-07-14 18:59 | disposition home or self-care (01) ==
LOC: JER 12:05 → JERBED 15:40 → J8W 17:48
PROVIDERS: ADMIT Internal Medicine; ATTEND Family Medicine
PROC: 3E0F7GC Introduction of Other Therapeutic Substance into Respiratory Tract, Via Natural or Artificial Opening (ICD-10-PCS; principal; 2022-07-13)
PROC: 3E03329 Introduction of Other Anti-infective into Peripheral Vein, Percutaneous Approach (ICD-10-PCS; 2022-07-13)
DX: J44.1 Chronic obstructive pulmonary disease with (acute) exacerbation (principal); I10 Essential (primary) hypertension; E78.5 Hyperlipidemia, unspecified; E03.9 Hypothyroidism, unspecified; Z95.0 Presence of cardiac pacemaker; E78.00 Pure hypercholesterolemia, unspecified; R06.02 Shortness of breath; Z86.73 Personal history of transient ischemic attack (TIA), and cerebral infarction without residual deficits; Z87.891 Personal history of nicotine dependence; Z99.81 Dependence on supplemental oxygen
CPT/HCPCS: 0241U-QW; 36415; 71046-TC-FY; 80048; 80053; 81003; 84484; 85025; 87040; 87086; 93005; 93010; 94640; 96365; 96375; 99285-25; G0378

== ENCOUNTER 2022-08-29 14:11 | Emergency (ER) | payer OTHER ==
[2022-08-29 14:54] VITALS: PULSE 64; BMI 27.4
[2022-08-29] MEDS ORDERED: ACETAMINOPHEN 1000 MG/100 ML BAG IVPB ONE (15:08)
[2022-08-29] MEDS ORDERED: ONDANSETRON 4 MG/2 ML VIAL IVPB ONE (15:08)
[2022-08-29 15:09] VITALS: RESP 16
[2022-08-29] MEDS ORDERED: ONDANSETRON 4 MG/2 ML VIAL ONE (15:14)
[2022-08-29] MEDS ORDERED: ACETAMINOPHEN INJECTION 100 ML IVPB ONE (15:15)
[2022-08-29 15:50] LABS: HEMATOCRIT 38.3 % (32.4-45.2); HEMOGLOBIN 12.7 G/dL (10.7-15.3); MCH 31.7 pg (25.7-33.7); MCHC 33.2 g/dl (32.0-36.0); MEAN CELL VOLUME 95.6 fl (80-96); MEAN PLT VOLUME 7.6 fl (7.5-11.1); PLATELET COUNT 219.2 10^3/uL (134-434); RBC 4.01 10^6/uL (3.60-5.2); WHITE BLOOD COUNT 7.5 10^3/uL (4.0-10.8)
[2022-08-29 16:02] LABS: ALBUMIN 3.7 g/dl (3.4-5.0); BILIRUBIN,TOTAL 0.7 mg/dl (0.2-1); CALCIUM 9.3 mg/dl (8.5-10); CREATININE 0.7 mg/dl (0.55-1.3); TOT PROT 6.3 g/dl (6.4-8.2)
[2022-08-29 16:02] LABS: EPITHELIAL CELLS FEW /hpf
[2022-08-29 17:46] LABS: PLATELET ESTIMATE ADEQUATE
[2022-08-29 17:56] VITALS: BP 111/48; TEMP 98.4
== END 2022-08-29 19:12 | disposition home or self-care (01) ==
LOC: FER 14:11
PROC: 3E033NZ Introduction of Analgesics, Hypnotics, Sedatives into Peripheral Vein, Percutaneous Approach (ICD-10-PCS; principal; 2022-08-29)
PROC: 3E033GC Introduction of Other Therapeutic Substance into Peripheral Vein, Percutaneous Approach (ICD-10-PCS; 2022-08-29)
DX: M54.50 Low back pain, unspecified (principal)
CPT/HCPCS: 36415; 80053; 81003; 81015; 84484; 85027; 87086; 93005; 99284-25

== ENCOUNTER 2022-08-30 12:55 | Emergency (ER) | payer OTHER ==
[2022-08-30 13:03] VITALS: TEMP 99.2; BMI 27.4
[2022-08-30] MEDS ORDERED: LIDOCAINE 5% TOPICAL PATCH TP ONE ×2 (13:51→13:52)
[2022-08-30] MEDS ORDERED: LIDOCAINE 5% TOPICAL PATCH ONE ×2 (13:57→14:05)
[2022-08-30] MEDS ORDERED: ONDANSETRON 4 MG/2 ML VIAL IVPUSH ONE (13:57)
[2022-08-30 14:42] LABS: BASO % 0.5 % (0-2.0); EOS % 0.3 % (0-4.5); HEMATOCRIT 35.7 % (32.4-45.2); HEMOGLOBIN 12.2 GM/dL (10.7-15.3); LYMPH % 10.7 % (8-40); MCH 32.3 pg (25.7-33.7); MCHC 34.3 g/dl (32.0-36.0); MEAN CELL VOLUME 94.1 fl (80-96); MEAN PLT VOLUME 7.7 fl (7.5-11.1); MONO % 8.8 % (3.8-10.2); NEUT % 79.7 % (42.8-82.8); PLATELET COUNT 226 10^3/uL (134-434); RBC 3.79 M/mm3 (3.60-5.2); RDW 15.1 % (11.6-15.6); WHITE BLOOD COUNT 7.6 K/mm3 (4.0-10.0)
[2022-08-30 14:59] LABS: CHLORIDE 103 mmol/L (98-107); SODIUM 137 mmol/L (136-145)
[2022-08-30 15:01] LABS: CALCIUM 8.9 mg/dL (8.5-10.1)
[2022-08-30] MEDS ORDERED: ACETAMINOPHEN 325 MG TABLET (FP) PO ONE (15:01)
[2022-08-30 15:02] LABS: ALBUMIN 3.2 g/dl (3.4-5.0); ANION GAP 4 MMOL/L (8-16); CO2 30 mmol/L (21-32); GLUCOSE,RANDOM 148 mg/dL (74-106)
[2022-08-30 15:05] LABS: CREATININE 0.8 mg/dL (0.55-1.3); SGOT/AST 28 U/L (15-37)
[2022-08-30 15:06] LABS: SGPT/ALT 29 U/L (13-61)
[2022-08-30 15:07] LABS: BILIRUBIN,TOTAL 0.4 mg/dL (0.2-1)
[2022-08-30 15:08] LABS: ALK PHOS 79 U/L (45-117)
[2022-08-30 15:19] LABS: ERYTHROCYTE SEDIMENTATION RATE 10 mm/hr (0-30)
[2022-08-30] MEDS ORDERED: ACETAMINOPHEN 325 MG TABLET (FP) ONE (15:51)
[2022-08-30 17:36] VITALS: BP 180/65; PULSE 71; RESP 20
[2022-08-30] MEDS ORDERED: LIDOCAINE PATCH REMOVAL MC ONE ×2 (22:00)
== END 2022-08-30 17:37 | disposition home or self-care (01) ==
LOC: JER 12:55
DX: M25.551 Pain in right hip (principal); M25.511 Pain in right shoulder
CPT/HCPCS: 0241U-QW; 36415; 71045-TC-FY; 73030-TC-RT-FY; 73502-TC-RT-FY; 80053; 82550; 84484; 85025; 85651; 86140; 93005; 93010; 99285-25

== ENCOUNTER 2022-10-08 04:13 | Day surgery (SDC) | payer OTHER ==
[2022-10-04 17:34] VITALS: BMI 28.2
[~2022-10-08 04:13] MED LIST: LIDOCAINE HCL 1% PRESERVATIVE FREE - 30ML VIAL IJ ONE
[2022-10-08] MEDS ORDERED: BUPIVACAINE HCL/PF 0.25% (2.5MG/ML) 10 ML VIAL ONE (07:27)
[2022-10-08] MEDS ORDERED: TRIAMCINOLONE ACET 40MG/1ML VIAL ONE (07:27)
[2022-10-08] MEDS ORDERED: BUPIVACAINE HCL/PF 0.5% (5MG/ML) 10 ML VIAL ONE (07:28)
[2022-10-08] MEDS ORDERED: LIDOCAINE HCL/PF 1% SDV 5ML VIAL ONE (07:28)
[2022-10-08] MEDS ORDERED: ACETAMINOPHEN 500 MG TABLET (FP) PO PRN (11:02)
[2022-10-08] MEDS ORDERED: LIDOCAINE HCL 1% PRESERVATIVE FREE - 30ML VIAL IJ ONE (12:54)
[2022-10-08] MEDS ORDERED: BUPIVACAINE HCL/PF 0.5% (5 MG/ML) 30 ML VIAL IJ ONE (12:55)
[2022-10-08] MEDS ORDERED: IOHEXOL 180 MG/1 ML ML IJ ONE (12:55)
[2022-10-08] MEDS ORDERED: TRIAMCINOLONE ACET 40MG/1ML VIAL IJ ONE (12:55)
[2022-10-08 13:27] VITALS: RESP 18
[2022-10-08 14:01] VITALS: BP 129/79; PULSE 71; TEMP 98.3
== END 2022-10-08 13:40 | disposition home or self-care (01) ==
LOC: JASU-SURG 04:13
PROVIDERS: ATTEND Pain Medicine Pain Medicine
PROC: 3E0U3BZ Introduction of Anesthetic Agent into Joints, Percutaneous Approach (ICD-10-PCS; 2022-10-08)
PROC: 3E0U33Z Introduction of Anti-inflammatory into Joints, Percutaneous Approach (ICD-10-PCS; principal; 2022-10-08 12:00)
DX: M16.11 Unilateral primary osteoarthritis, right hip (principal)
CPT/HCPCS: 76000-TC-FY

== ENCOUNTER 2023-02-04 17:21 | Emergency (ER) | payer OTHER ==
[2023-02-04] MEDS ORDERED: SODIUM CHLORIDE 0.9% 1000 ML INFUS.BAG IV ONE (17:26)
[2023-02-04] MEDS ORDERED: ONDANSETRON 4 MG/2 ML VIAL IVPUSH ONE (17:40)
[2023-02-04] MEDS ORDERED: ALBUTEROL SO4 2.5/IPRATROPIUM 0.5 INH SOL 3 ML VIAL.NEB. NEB ONE ×2 (17:40→18:35)
[2023-02-04 17:54] VITALS: TEMP 98.2; BMI 27.1
[2023-02-04 18:33] VITALS: RESP 20
[2023-02-04] MEDS ORDERED: ONDANSETRON 4 MG/2 ML VIAL ONE (18:35)
[2023-02-04] MEDS ORDERED: DEXAMETHASONE SOD PHOSPHATE 10 MG/1 ML VIAL IVPUSH ONE ×2 (19:04→19:33)
[2023-02-04 19:11] LABS: INR 1.1 (0.83-1.09); PROTHROMBIN TIME (PATIENT) 12.8 SEC (9.7-13.0)
[2023-02-04 19:12] LABS: HEMATOCRIT 37.7 % (32.4-45.2); HEMOGLOBIN 12.6 G/dL (10.7-15.3); MCH 33.4 pg (25.7-33.7); MCHC 33.5 g/dl (32.0-36.0); MEAN CELL VOLUME 99.7 fl (80-96); PLATELET COUNT 175.7 10^3/uL (134-434); RBC 3.78 10^6/uL (3.60-5.2); RDW 13.5 % (11.6-15.6)
[2023-02-04 19:14] LABS: ACTIVATED PTT 30.1 SECONDS (25.2-36.5)
[2023-02-04 19:22] LABS: BLOOD UREA NITROGEN 21.9 mg/dl (7-18); CALCIUM 9.3 mg/dl (8.5-10.1); CREATININE 0.7 mg/dl (0.6-1.3); POTASSIUM 3.9 mmol/L (3.5-5.1); SGOT/AST 19.7 U/L (15-37); SGPT/ALT 13.1 U/L (7-52)
[2023-02-04] MEDS ORDERED: DEXAMETHASONE SOD PHOSPHATE/PF 10 MG/ML SDV ONE (19:34)
[2023-02-04] MEDS ORDERED: DEXAMETHASONE SOD PHOSPHATE 10 MG/1 ML VIAL IVPB ONE (19:40)
[2023-02-04 19:49] LABS: PLATELET ESTIMATE ADEQUATE
[2023-02-04 20:19] VITALS: BP 130/76; PULSE 80
[2023-02-04 20:50] LABS: BILIRUBIN,TOTAL 0.8 mg/dL (0.2-1)
== END 2023-02-04 20:19 | disposition home or self-care (01) ==
LOC: FER 17:21
PROC: 3E0F7GC Introduction of Other Therapeutic Substance into Respiratory Tract, Via Natural or Artificial Opening (ICD-10-PCS; principal; 2023-02-04)
PROC: 3E033GC Introduction of Other Therapeutic Substance into Peripheral Vein, Percutaneous Approach (ICD-10-PCS; 2023-02-04)
PROC: 3E033GC Introduction of Other Therapeutic Substance into Peripheral Vein, Percutaneous Approach (ICD-10-PCS; 2023-02-04)
DX: U07.1 COVID-19 (principal); J44.9 Chronic obstructive pulmonary disease, unspecified; R05.9 Cough, unspecified; R63.8 Other symptoms and signs concerning food and fluid intake; R19.7 Diarrhea, unspecified; R50.9 Fever, unspecified; R11.0 Nausea; R10.9 Unspecified abdominal pain; Z20.822 Contact with and (suspected) exposure to COVID-19
CPT/HCPCS: 0241U-QW; 36415; 71045-TC-FY; 80053; 82272; 83735; 85027; 85610; 85730; 93005; 99285-25; J1100

== ENCOUNTER 2023-05-28 16:20 | Inpatient (IN) | payer OTHER ==
[2023-05-28] MEDS ORDERED: ALBUTEROL SO4 2.5/IPRATROPIUM 0.5 INH SOL 3 ML VIAL.NEB. NEB ONE ×2 (16:27→17:19)
[2023-05-28] MEDS: ALBUTEROL SO4 2.5/IPRATROPIUM 0.5 INH SOL 3 ML VIAL.NEB. NEB SCH ×4 (17:00→17:45)
[2023-05-28 18:17] LABS: HEMATOCRIT 36.4 % (32.4-45.2); HEMOGLOBIN 11.6 G/dL (10.7-15.3); MEAN PLT VOLUME 7.7 fl (7.5-11.1); PLATELET COUNT 185.8 10^3/uL (134-434); RBC 3.75 10^6/uL (3.60-5.2); RDW 14.3 % (11.6-15.6); WHITE BLOOD COUNT 5.8 10^3/uL (4.0-10.8)
[2023-05-28 18:30] LABS: ALBUMIN 3.8 g/dl (3.4-5.0); BILIRUBIN,TOTAL 0.5 mg/dl (0.2-1); CALCIUM 9.1 mg/dl (8.5-10.1); CREATININE 0.8 mg/dl (0.6-1.3); POTASSIUM 3.9 mmol/L (3.5-5.1); TOT PROT 5.9 g/dl (6.4-8.2)
[2023-05-28 19:03] LABS: VENOUS BASE EXCESS 0.8 mmol/L (-2-2); VENOUS O2 SATURATION 39.2 % (70-80); VENOUS PCO2 61.7 mmHg (38-52); VENOUS PH 7.284 (7.310-7.410)
[2023-05-28 19:11] LABS: PLATELET ESTIMATE ADEQUATE
[2023-05-28] MEDS ORDERED: ALBUTEROL SO4 2.5/IPRATROPIUM 0.5 INH SOL 3 ML VIAL.NEB. NEB PRN (23:24)
[2023-05-28] MEDS ORDERED: OSELTAMIVIR PHOSPHATE 75 MG CAPSULE PO SCH (23:30)
[2023-05-29] MEDS ORDERED: ALBUTEROL SO4 HFA INHALER IH PRN (01:56)
[2023-05-29] MEDS: OSELTAMIVIR PHOSPHATE 30 MG CAPSULE PO SCH ×4 (03:00→21:34)
[2023-05-29 04:41] VITALS: BMI 27.3
[2023-05-29] MEDS: LEVOTHYROXINE NA 50 MCG TABLET (FP) PO SCH (06:34)
[2023-05-29 08:59] LABS: CALCIUM 8.7 mg/dl (8.5-10.1); CREATININE 0.8 mg/dl (0.6-1.3); POTASSIUM 4.3 mmol/L (3.5-5.1)
[2023-05-29 09:23] LABS: BASO % 0.3 % (0-2.0); EOS % 0.1 % (0-4.5); HEMATOCRIT 32.2 % (32.4-45.2); HEMOGLOBIN 10.8 GM/dL (10.7-15.3); LYMPH % 20.7 % (8-40); MCH 31.9 pg (25.7-33.7); MCHC 33.4 g/dl (32.0-36.0); MEAN CELL VOLUME 95.4 fl (80-96); MEAN PLT VOLUME 7.4 fl (7.5-11.1); MONO % 17.7 % (3.8-10.2); NEUT % 61.2 % (42.8-82.8); PLATELET COUNT 175 10^3/uL (134-434); RBC 3.38 M/mm3 (3.60-5.2); RDW 13.9 % (11.6-15.6); WHITE BLOOD COUNT 4.2 K/mm3 (4.0-10.0)
[2023-05-29] MEDS: methylPREDNISolone NA SUCC 40 MG/1 ML VIAL IVPUSH SCH ×3 (09:34→21:34)
[2023-05-29] MEDS ORDERED: OSELTAMIVIR PHOSPHATE 30 MG CAPSULE PO SCH (09:34)
[2023-05-29] MEDS: FLUTICASONE/UMECLIDIN/VILANTER(100-62.5-25 TRELEGY ELLIPTA) INAHLER IH SCH (09:34)
[2023-05-29] MEDS: AZITHROMYCIN IVPB 500 MG/250 ML BAG IVPB SCH (09:34)
[2023-05-29] MEDS: ASPIRIN/DIPYRIDAMOLE 25 MG/200 MG CAPSULE PO SCH ×2 (09:34→21:33)
[2023-05-29] MEDS: GABAPENTIN 300 MG CAPSULE PO SCH ×2 (09:39→21:34)
[2023-05-29] MEDS ORDERED: FLUTICASONE/SALMETEROL (WIXELA) 100 MCG/50 MCG DISKUS IH SCH (10:00)
[2023-05-29] MEDS: guaiFENesin 200 MG/10 ML 10 ML UNIT-DOSE CUPS PO PRN (21:33)
[2023-05-29] MEDS ORDERED: ATORVASTATIN CA 40 MG TABLET (FP) PO SCH (22:00)
[2023-05-30 02:13] VITALS: RESP 18
[2023-05-30] MEDS: methylPREDNISolone NA SUCC 40 MG/1 ML VIAL IVPUSH SCH ×2 (03:22→09:18)
[2023-05-30] MEDS: LEVOTHYROXINE NA 50 MCG TABLET (FP) PO SCH (06:17)
[2023-05-30] MEDS: ASPIRIN/DIPYRIDAMOLE 25 MG/200 MG CAPSULE PO SCH (09:18)
[2023-05-30] MEDS: OSELTAMIVIR PHOSPHATE 30 MG CAPSULE PO SCH (09:18)
[2023-05-30] MEDS: AZITHROMYCIN IVPB 500 MG/250 ML BAG IVPB SCH (09:19)
[2023-05-30] MEDS: GABAPENTIN 300 MG CAPSULE PO SCH (09:19)
[2023-05-30] MEDS: guaiFENesin 200 MG/10 ML 10 ML UNIT-DOSE CUPS PO PRN (09:19)
[2023-05-30 09:20] LABS: ALBUMIN 3.5 g/dl (3.4-5.0); BILIRUBIN,TOTAL 0.4 mg/dl (0.2-1); CREATININE 0.7 mg/dl (0.6-1.3); POTASSIUM 4.5 mmol/L (3.5-5.1); TOT PROT 5.3 g/dl (6.4-8.2)
[2023-05-30] MEDS: FLUTICASONE/UMECLIDIN/VILANTER(100-62.5-25 TRELEGY ELLIPTA) INAHLER IH SCH (09:30)
[2023-05-30 10:21] LABS: BASO % 0.2 % (0-2.0); HEMATOCRIT 35.8 % (32.4-45.2); LYMPH % 17.8 % (8-40); MCH 32.3 pg (25.7-33.7); MCHC 33.6 g/dl (32.0-36.0); MEAN CELL VOLUME 96.1 fl (80-96); MONO % 12.9 % (3.8-10.2); NEUT % 69.1 % (42.8-82.8); PLATELET COUNT 212 10^3/uL (134-434); RBC 3.72 M/mm3 (3.60-5.2); RDW 14.2 % (11.6-15.6); WHITE BLOOD COUNT 4.7 K/mm3 (4.0-10.0)
[2023-05-30 11:18] VITALS: PULSE 64; TEMP 98.1
[2023-05-30 11:30] VITALS: BP 133/44
== END 2023-05-30 11:43 | disposition home or self-care (01) | DRG 193 ==
LOC: FER 16:20 → FM/S 23:33
PROVIDERS: ADMIT Internal Medicine
DX: J10.1 Influenza due to other identified influenza virus with other respiratory manifestations (principal); J96.01 Acute respiratory failure with hypoxia; J96.02 Acute respiratory failure with hypercapnia; J44.1 Chronic obstructive pulmonary disease with (acute) exacerbation; E78.5 Hyperlipidemia, unspecified; E03.9 Hypothyroidism, unspecified; G62.9 Polyneuropathy, unspecified; H81.10 Benign paroxysmal vertigo, unspecified ear; I11.0 Hypertensive heart disease with heart failure; I50.9 Heart failure, unspecified; Z86.73 Personal history of transient ischemic attack (TIA), and cerebral infarction without residual deficits; Z99.81 Dependence on supplemental oxygen; Z95.0 Presence of cardiac pacemaker
CPT/HCPCS: 0241U-QW; 36415; 71045-TC-FY; 80048; 80053; 82803; 83880; 85025; 85027; 93005; 99285-25

== ENCOUNTER 2023-08-11 23:42 | Observation (INO) | payer OTHER ==
[2023-08-12] MEDS ORDERED: ACETAMINOPHEN INJECTION 100 ML IVPB ONE (00:45)
[2023-08-12 01:04] LABS: INR 1.06 (0.83-1.09); PROTHROMBIN TIME (PATIENT) 12.3 SEC (9.7-13.0)
[2023-08-12] MEDS: ACETAMINOPHEN 1000 MG/100 ML BAG IVPB ONE (01:04)
[2023-08-12 01:07] LABS: ACTIVATED PTT 28.9 SECONDS (25.2-36.5)
[2023-08-12 01:10] LABS: VENOUS BASE EXCESS 0.5 mmol/L (-2-2); VENOUS O2 SATURATION 60.8 % (70-80); VENOUS PCO2 47.7 mmHg (38-52); VENOUS PH 7.362 (7.310-7.410)
[2023-08-12 01:14] LABS: BASO % 0.3 % (0-2.0); EOS % 2.5 % (0-4.5); HEMATOCRIT 34.8 % (32.4-45.2); HEMOGLOBIN 11.8 GM/dL (10.7-15.3); MCH 32.2 pg (25.7-33.7); MEAN CELL VOLUME 94.8 fl (80-96); MEAN PLT VOLUME 7.5 fl (7.5-11.1); MONO % 11.8 % (3.8-10.2); NEUT % 64.4 % (42.8-82.8); PLATELET COUNT 236 10^3/uL (134-434); RBC 3.67 M/mm3 (3.60-5.2); RDW 14.9 % (11.6-15.6)
[2023-08-12 02:15] LABS: ALBUMIN 3.3 g/dl (3.4-5.0); BLOOD UREA NITROGEN 19.8 mg/dL (7-18); CALCIUM 8.6 mg/dL (8.5-10.1)
[2023-08-12 02:18] LABS: CREATININE 0.8 mg/dL (0.55-1.3)
[2023-08-12 02:20] LABS: BILIRUBIN,TOTAL 0.3 mg/dL (0.2-1); TOT PROT 6.4 g/dl (6.4-8.2)
[2023-08-12 02:23] LABS: N-TERMINAL BNP 392.6 pg/ml (5-450)
[2023-08-12] MEDS ORDERED: DOCUSATE SODIUM 100 MG CAPSULE (FP) PO PRN (02:42)
[2023-08-12 06:08] VITALS: BMI 25.6
[2023-08-12] MEDS ORDERED: ACETAMINOPHEN 1000 MG/100 ML BAG IVPB PRN (07:00)
[2023-08-12 07:25] LABS: INR 1.06 (0.83-1.09); PROTHROMBIN TIME (PATIENT) 12.3 SEC (9.7-13.0)
[2023-08-12 07:27] LABS: ACTIVATED PTT 30.6 SECONDS (25.2-36.5)
[2023-08-12 07:28] LABS: HEMATOCRIT 34.7 % (32.4-45.2); HEMOGLOBIN 11.6 G/dL (10.7-15.3); MCH 32.1 pg (25.7-33.7); MCHC 33.3 g/dl (32.0-36.0); MEAN CELL VOLUME 96.4 fl (80-96); MEAN PLT VOLUME 7.4 fl (7.5-11.1); PLATELET COUNT 192.6 10^3/uL (134-434); WHITE BLOOD COUNT 6.4 10^3/uL (4.0-10.8)
[2023-08-12] MEDS ORDERED: LEVALBUTEROL HCL 0.63 MG/3 ML VIAL.NEB. IH PRN (07:31)
[2023-08-12 07:48] LABS: CREATININE 0.8 mg/dl (0.6-1.3); MAGNESIUM 2.2 mg/dL (1.8-2.4); PHOSPHOROUS 3.8 (2.5-4.9)
[2023-08-12] MEDS: ATORVASTATIN CA 40 MG TABLET (FP) PO SCH (08:06)
[2023-08-12] MEDS: LEVOTHYROXINE NA 50 MCG TABLET (FP) PO SCH (08:06)
[2023-08-12] MEDS: MECLIZINE HCL 25 MG TABLET (FP) PO PRN (09:21)
[2023-08-12] MEDS: amLODIPine BESYLATE 2.5 MG TABLET (FP) PO SCH (09:21)
[2023-08-12] MEDS: GABAPENTIN 300 MG CAPSULE PO SCH (09:21)
[2023-08-12] MEDS: ASPIRIN/DIPYRIDAMOLE 25 MG/200 MG CAPSULE PO SCH (09:21)
[2023-08-12] MEDS: FLUTICASONE/UMECLIDIN/VILANTER(100-62.5-25 TRELEGY ELLIPTA) INAHLER IH SCH (10:30)
[2023-08-13 06:39] VITALS: TEMP 97.8
[2023-08-13] MEDS ORDERED: ACETAMINOPHEN 325 MG TABLET (FP) PO PRN (07:00)
[2023-08-13 07:56] LABS: HEMATOCRIT 35.1 % (32.4-45.2); HEMOGLOBIN 11.3 G/dL (10.7-15.3); MCH 31.2 pg (25.7-33.7); MCHC 32.3 g/dl (32.0-36.0); MEAN CELL VOLUME 96.7 fl (80-96); MEAN PLT VOLUME 7.5 fl (7.5-11.1); RBC 3.63 10^6/uL (3.60-5.2); RDW 15.1 % (11.6-15.6); WHITE BLOOD COUNT 6.3 10^3/uL (4.0-10.8)
[2023-08-13] MEDS: amLODIPine BESYLATE 5 MG TABLET (FP) PO SCH (08:15)
[2023-08-13 09:11] LABS: CALCIUM 8.9 mg/dl (8.5-10.1); CREATININE 0.7 mg/dl (0.6-1.3); POTASSIUM 4.1 mmol/L (3.5-5.1)
[2023-08-13 10:00] VITALS: BP 155/60; PULSE 84; RESP 24
[2023-08-13] MEDS: ENOXAPARIN NA (PORCINE) 40 MG/0.4 ML DISP.SYRIN SQ SCH (10:15)
[2023-08-13] MEDS: MECLIZINE HCL 25 MG TABLET (FP) PO SCH (10:16)
== END 2023-08-13 12:37 | disposition home or self-care (01) ==
LOC: FER 23:42 → FM/S 08-12 02:29
PROVIDERS: ADMIT Internal Medicine; ATTEND Internal Medicine
PROC: 3E033NZ Introduction of Analgesics, Hypnotics, Sedatives into Peripheral Vein, Percutaneous Approach (ICD-10-PCS; principal; 2023-08-12)
PROC: 3E023GC Introduction of Other Therapeutic Substance into Muscle, Percutaneous Approach (ICD-10-PCS; 2023-08-12)
DX: R42 Dizziness and giddiness (principal); M43.6 Torticollis; I16.0 Hypertensive urgency; E78.5 Hyperlipidemia, unspecified; J44.9 Chronic obstructive pulmonary disease, unspecified; I50.9 Heart failure, unspecified; E03.9 Hypothyroidism, unspecified; Z86.16 Personal history of COVID-19; R51.9 Headache, unspecified; Z95.0 Presence of cardiac pacemaker
CPT/HCPCS: 0241U-QW; 36415; 70450-TC; 70496-TC; 70498-TC; 71045-TC-FY; 80048; 80053; 81003; 81015; 82803; 83735; 83880; 84100; 84439; 84443; 84484; 85025; 85027; 85610; 85730; 86850; 86900; 86901; 87086; 93005; 96372; 96374; 97116-GP; 97162-GP; 99285-25; G0378; J0131

== ENCOUNTER 2023-09-12 23:01 | Emergency (ER) | payer OTHER ==
[2023-09-12 23:09] VITALS: BP 155/80; PULSE 84; RESP 18; TEMP 98.4; BMI 26.3
== END 2023-09-13 01:26 | disposition home or self-care (01) ==
LOC: FER 23:01
DX: S40.012A Contusion of left shoulder, initial encounter (principal); S09.90XA Unspecified injury of head, initial encounter; R51.9 Headache, unspecified; W18.00XA Striking against unspecified object with subsequent fall, initial encounter; Y93.89 Activity, other specified; Y92.009 Unspecified place in unspecified non-institutional (private) residence as the place of occurrence of the external cause
CPT/HCPCS: 70450-TC; 72125-TC; 73030-TC-LT-FY; 99284-25

== ENCOUNTER 2023-10-05 19:38 | Emergency (ER) | payer OTHER ==
[2023-10-05 19:45] VITALS: TEMP 98; BMI 25.7
[2023-10-05] MEDS ORDERED: PANTOPRAZOLE SODIUM 40 MG VIAL ONE (20:03)
[2023-10-05] MEDS ORDERED: ONDANSETRON 4 MG/2 ML VIAL ONE (20:03)
[2023-10-05] MEDS: ONDANSETRON 4 MG/2 ML VIAL IVPB ONE (20:20)
[2023-10-05] MEDS: SODIUM CHLORIDE 1,000 ML IV ONE (20:20)
[2023-10-05] MEDS: PANTOPRAZOLE SODIUM 40 MG VIAL IVPUSH ONE (20:33)
[2023-10-05 20:50] LABS: BILIRUBIN,TOTAL 0.7 mg/dl (0.2-1); CALCIUM 9.5 mg/dl (8.5-10.1); CREATININE 0.8 mg/dl (0.6-1.3); MAGNESIUM 2.1 mg/dL (1.8-2.4); PHOSPHOROUS 2.8 (2.5-4.9); TOT PROT 6.3 g/dl (6.4-8.2)
[2023-10-05 22:02] LABS: HEMATOCRIT 39.1 % (32.4-45.2); HEMOGLOBIN 12.7 G/dL (10.7-15.3); MCH 31.3 pg (25.7-33.7); MCHC 32.5 g/dl (32.0-36.0); MEAN CELL VOLUME 96.2 fl (80-96); MEAN PLT VOLUME 7.7 fl (7.5-11.1); PLATELET COUNT 230.3 10^3/uL (134-434); RBC 4.06 10^6/uL (3.60-5.2); RDW 13.6 % (11.6-15.6); WHITE BLOOD COUNT 7.9 10^3/uL (4.0-10.8)
[2023-10-05 23:10] VITALS: BP 138/64; PULSE 62; RESP 18
[2023-10-05 23:47] LABS: EPITHELIAL CELLS 0-5 /hpf; URINE MUCUS FEW
== END 2023-10-06 01:31 | disposition home or self-care (01) ==
LOC: FER 19:38
PROC: 3E030GC Introduction of Other Therapeutic Substance into Peripheral Vein, Open Approach (ICD-10-PCS; principal; 2023-10-05)
PROC: 3E030GC Introduction of Other Therapeutic Substance into Peripheral Vein, Open Approach (ICD-10-PCS; 2023-10-05)
PROC: 3E0337Z Introduction of Electrolytic and Water Balance Substance into Peripheral Vein, Percutaneous Approach (ICD-10-PCS; 2023-10-05)
DX: K29.00 Acute gastritis without bleeding (principal); R10.13 Epigastric pain; R11.2 Nausea with vomiting, unspecified; R19.7 Diarrhea, unspecified
CPT/HCPCS: 36415; 74177-TC; 80053; 81003; 81015; 82550; 83605; 83735; 84100; 84484; 85027; 93005; 99285-25; Q9967

== ENCOUNTER 2023-10-21 04:14 | Day surgery (SDC) | payer OTHER ==
[2023-10-16 17:01] VITALS: BMI 25.7
[2023-10-21 07:01] VITALS: RESP 18
[2023-10-21] MEDS ORDERED: BUPIVACAINE HCL/PF 0.5% (5MG/ML) 10 ML VIAL ONE (07:19)
[2023-10-21] MEDS ORDERED: LIDOCAINE HCL/PF 1% SDV 5ML VIAL ONE (07:19)
[2023-10-21] MEDS ORDERED: TRIAMCINOLONE ACET 40MG/1ML VIAL ONE (07:19)
[2023-10-21] MEDS: LIDOCAINE HCL 1% PRESERVATIVE FREE - 30ML VIAL IJ ONE (08:39)
[2023-10-21] MEDS: TRIAMCINOLONE ACETONIDE 40 MG/ML 10 ML VIAL IJ ONE (08:39)
[2023-10-21] MEDS: IOHEXOL 180 MG/1 ML ML IJ ONE (08:39)
[2023-10-21] MEDS: BUPIVACAINE HCL/PF 0.5% (5MG/ML) 10 ML VIAL IJ ONE (08:39)
[2023-10-21 09:40] VITALS: BP 149/72; PULSE 67; TEMP 97.7
[2023-10-21] MEDS ORDERED: ACETAMINOPHEN 500 MG TABLET (FP) PO PRN (10:29)
== END 2023-10-21 09:31 | disposition home or self-care (01) ==
LOC: JASU-SURG 04:14
PROVIDERS: ATTEND Pain Medicine Pain Medicine
PROC: 3E0U3BZ Introduction of Anesthetic Agent into Joints, Percutaneous Approach (ICD-10-PCS; 2023-10-21)
PROC: 3E0U33Z Introduction of Anti-inflammatory into Joints, Percutaneous Approach (ICD-10-PCS; principal; 2023-10-21 08:00)
DX: M53.3 Sacrococcygeal disorders, not elsewhere classified (principal)
CPT/HCPCS: 76000-TC-FY

== ENCOUNTER 2024-01-18 19:53 | Emergency (ER) | payer OTHER ==
[2024-01-18] MEDS ORDERED: AMOX TR/POT CLAV 875MG/125MG TABLETS (FP) PO ONE (20:17)
[2024-01-18] MEDS ORDERED: AMOX TR/POT CLAV 875MG/125MG TABLETS (FP) ONE (20:18)
[2024-01-18] MEDS: AMOX TR/POT CLAV 875MG/125MG TABLETS (FP) PO ONE (20:23)
[2024-01-18 20:24] VITALS: BP 159/70; PULSE 85; RESP 18; TEMP 98.4; BMI 26.8
[2024-01-18 23:19] LABS: HIV INTERPRETATION NEGATIVE (NEGATIVE)
== END 2024-01-18 20:29 | disposition home or self-care (01) ==
LOC: FER 19:53
DX: L03.116 Cellulitis of left lower limb (principal)
CPT/HCPCS: 36415; 86803; 87389; 99283-25

== ENCOUNTER 2024-02-06 11:38 | Emergency (ER) | payer OTHER ==
[2024-02-06 11:43] VITALS: BP 140/65; RESP 26; TEMP 98.4; BMI 26.6
[2024-02-06] MEDS ORDERED: methylPREDNISolone NA SUCC 125 MG/2 ML VIAL ONE (12:17)
[2024-02-06] MEDS: methylPREDNISolone NA SUCC 125 MG/2 ML VIAL IVPUSH ONE (12:25)
[2024-02-06] MEDS ORDERED: ALBUTEROL SO4 2.5/IPRATROPIUM 0.5 INH SOL 3 ML VIAL.NEB. NEB ONE ×2 (12:35→13:55)
[2024-02-06] MEDS: ALBUTEROL SO4 2.5/IPRATROPIUM 0.5 INH SOL 3 ML VIAL.NEB. NEB ONE (12:48)
[2024-02-06 12:52] LABS: HEMATOCRIT 34.8 % (32.4-45.2); MCH 28.7 pg (25.7-33.7); MCHC 31.5 g/dl (32.0-36.0); MEAN CELL VOLUME 91.1 fl (80-96); MEAN PLT VOLUME 7.7 fl (7.5-11.1); PLATELET COUNT 246.4 10^3/uL (134-434); RBC 3.82 10^6/uL (3.60-5.2); RDW 15.1 % (11.6-15.6); WHITE BLOOD COUNT 8.9 10^3/uL (4.0-10.8)
[2024-02-06 13:00] LABS: ALBUMIN 3.8 g/dl (3.4-5.0); BILIRUBIN,TOTAL 0.6 mg/dl (0.2-1); CALCIUM 9.4 mg/dl (8.5-10.1); CREATININE 0.7 mg/dl (0.6-1.3); POTASSIUM 3.8 mmol/L (3.5-5.1); TOT PROT 5.9 g/dl (6.4-8.2)
[2024-02-06 13:01] LABS: PLATELET ESTIMATE ADEQUATE
[2024-02-06] MEDS: ALBUTEROL SO4 2.5/IPRATROPIUM 0.5 INH SOL 3 ML VIAL.NEB. NEB SCH (13:45)
[2024-02-06 14:23] VITALS: PULSE 72
[2024-02-06 14:36] LABS: N-TERMINAL BNP 324.8 pg/ml (5-450)
== END 2024-02-06 15:43 | disposition home or self-care (01) ==
LOC: FER 11:38
PROC: 3E033GC Introduction of Other Therapeutic Substance into Peripheral Vein, Percutaneous Approach (ICD-10-PCS; principal; 2024-02-06)
PROC: 3E0F7GC Introduction of Other Therapeutic Substance into Respiratory Tract, Via Natural or Artificial Opening (ICD-10-PCS; 2024-02-06)
PROC: 3E0F7GC Introduction of Other Therapeutic Substance into Respiratory Tract, Via Natural or Artificial Opening (ICD-10-PCS; 2024-02-06)
DX: R05.9 Cough, unspecified (principal); R06.02 Shortness of breath; R50.9 Fever, unspecified; R07.89 Other chest pain; Z20.822 Contact with and (suspected) exposure to COVID-19
CPT/HCPCS: 0241U-QW; 36415; 71046-TC-FY; 80053; 83880; 84484; 85027; 93005; 99285-25

== ENCOUNTER 2024-02-09 19:35 | Observation (INO) | payer OTHER ==
[2024-02-09] MEDS ORDERED: ALBUTEROL SO4 2.5/IPRATROPIUM 0.5 INH SOL 3 ML VIAL.NEB. NEB ONE (20:02)
[2024-02-09] MEDS: ALBUTEROL SO4 2.5/IPRATROPIUM 0.5 INH SOL 3 ML VIAL.NEB. NEB SCH (20:07)
[2024-02-09] MEDS ORDERED: methylPREDNISolone NA SUCC 40 MG/1 ML VIAL ONE (20:22)
[2024-02-09] MEDS: methylPREDNISolone NA SUCC 40 MG/1 ML VIAL IVPUSH ONE (20:27)
[2024-02-09 20:34] LABS: HEMATOCRIT 38.4 % (32.4-45.2); HEMOGLOBIN 12.2 G/dL (10.7-15.3); MCH 28.9 pg (25.7-33.7); MCHC 31.9 g/dl (32.0-36.0); MEAN CELL VOLUME 90.8 fl (80-96); MEAN PLT VOLUME 7.5 fl (7.5-11.1); PLATELET COUNT 275.7 10^3/uL (134-434); RBC 4.23 10^6/uL (3.60-5.2); RDW 15.2 % (11.6-15.6); WHITE BLOOD COUNT 10.9 10^3/uL (4.0-10.8)
[2024-02-09 20:49] LABS: BILIRUBIN,TOTAL 0.9 mg/dl (0.2-1); CALCIUM 9.6 mg/dl (8.5-10.1); CREATININE 0.8 mg/dl (0.6-1.3); POTASSIUM 4.5 mmol/L (3.5-5.1); TOT PROT 6.3 g/dl (6.4-8.2)
[2024-02-09 20:52] LABS: PLATELET ESTIMATE ADEQUATE
[2024-02-09] MEDS ORDERED: ACETAMINOPHEN 325 MG TABLET (FP) PO PRN (23:57)
[2024-02-09] MEDS ORDERED: DOCUSATE SODIUM 100 MG CAPSULE (FP) PO PRN (23:57)
[2024-02-10] MEDS ORDERED: PATIENT'S OWN MEDICATION (NON-FORMULARY) (Levalbuterol Tartrate [Xopenex Hfa] 15 GM Hfa.Ae IH PRN (00:09)
[2024-02-10] MEDS ORDERED: BENZOCAINE/MENTH/CETYLPYRD CL 1 EACH LOZENGE MM PRN (02:54)
[2024-02-10] MEDS ORDERED: ALBUTEROL SO4 2.5/IPRATROPIUM 0.5 INH SOL 3 ML VIAL.NEB. NEB PRN ×2 (02:55→10:17)
[2024-02-10] MEDS: guaiFENesin/D-METHORPHAN TAB.ER.12H PO SCH (04:12)
[2024-02-10] MEDS: LORATADINE 10 MG TABLET PO SCH (04:12)
[2024-02-10] MEDS ORDERED: MELATONIN 5 MG TABLETS PO PRN (04:31)
[2024-02-10 05:27] VITALS: BMI 23.6
[2024-02-10] MEDS: LEVOTHYROXINE NA 50 MCG TABLET (FP) PO SCH (06:04)
[2024-02-10] MEDS ORDERED: methylPREDNISolone NA SUCC 40 MG/1 ML VIAL IVPUSH SCH (08:00)
[2024-02-10 08:46] LABS: BASO % 0.2 % (0-2.0); HEMATOCRIT 34.6 % (32.4-45.2); HEMOGLOBIN 11.7 GM/dL (10.7-15.3); INR 1.24 (0.83-1.09); LYMPH % 11.2 % (8-40); MCH 30.1 pg (25.7-33.7); MCHC 33.7 g/dl (32.0-36.0); MEAN CELL VOLUME 89.3 fl (80-96); MEAN PLT VOLUME 7.3 fl (7.5-11.1); MONO % 3.5 % (3.8-10.2); NEUT % 85.1 % (42.8-82.8); PLATELET COUNT 266 10^3/uL (134-434); PROTHROMBIN TIME (PATIENT) 14.1 SEC (9.7-13.0); RBC 3.87 M/mm3 (3.60-5.2); RDW 15.3 % (11.6-15.6); WHITE BLOOD COUNT 8.4 K/mm3 (4.0-10.0)
[2024-02-10 08:48] LABS: CALCIUM 9.7 mg/dl (8.5-10.1); CREATININE 0.7 mg/dl (0.6-1.3); MAGNESIUM 2.3 mg/dL (1.8-2.4); POTASSIUM 4.7 mmol/L (3.5-5.1)
[2024-02-10] MEDS: predniSONE 20 MG TABLET (UD) PO SCH (09:42)
[2024-02-10] MEDS: ALBUTEROL SO4 2.5/IPRATROPIUM 0.5 INH SOL 3 ML VIAL.NEB. NEB SCH (09:43)
[2024-02-10] MEDS: amLODIPine BESYLATE 5 MG TABLET (FP) PO SCH (09:43)
[2024-02-10] MEDS: APIXABAN 2.5 MG TABLET PO SCH (09:43)
[2024-02-10] MEDS: ASPIRIN COATED 81 MG TABLET.EC PO SCH (09:43)
[2024-02-10 09:49] VITALS: BP 125/83; PULSE 71; RESP 18; TEMP 98.4
[2024-02-10] MEDS ORDERED: FLUTICASONE/UMECLIDIN/VILANTER(100-62.5-25 TRELEGY ELLIPTA) INAHLER IH SCH ×2 (10:00→10:30)
[2024-02-10] MEDS ORDERED: ATORVASTATIN CA 40 MG TABLET (FP) PO SCH (22:00)
[2024-02-10] MEDS ORDERED: MECLIZINE HCL 12.5 MG TABLET PO SCH (22:00)
== END 2024-02-10 12:47 | disposition home or self-care (01) ==
LOC: FER 19:35 → FM/S 23:46
PROVIDERS: ADMIT Internal Medicine; ATTEND Internal Medicine
PROC: 3E0F7GC Introduction of Other Therapeutic Substance into Respiratory Tract, Via Natural or Artificial Opening (ICD-10-PCS; principal; 2024-02-09)
DX: J44.1 Chronic obstructive pulmonary disease with (acute) exacerbation (principal); J40 Bronchitis, not specified as acute or chronic; R07.9 Chest pain, unspecified; R79.89 Other specified abnormal findings of blood chemistry; E03.9 Hypothyroidism, unspecified; Z86.73 Personal history of transient ischemic attack (TIA), and cerebral infarction without residual deficits; E78.5 Hyperlipidemia, unspecified
CPT/HCPCS: 0241U-QW; 36415; 71045-TC-FY; 80048; 80053; 82550; 83735; 83880; 84439; 84443; 84484; 85025; 85027; 85610; 85730; 93005; 94640; 96374; 97116-GP; 97162-GP; 99285-25; G0378

== ENCOUNTER 2024-11-15 11:38 | Inpatient (IN) | payer OTHER ==
[2024-11-15] MEDS ORDERED: DEXAMETHASONE SOD PHOSPHATE 10 MG/1 ML VIAL ONE (12:16)
[2024-11-15] MEDS ORDERED: ALBUTEROL SO4 2.5/IPRATROPIUM 0.5 INH SOL 3 ML VIAL.NEB. NEB ONE ×2 (12:16→12:17)
[2024-11-15 12:17] LABS: ABSOLUTE IMMATURE GRANULOCYTES 0.02 x10^3/uL (0.0-0.031); BASOPHILS # 0.01 x10^3/uL (0.01-0.08); EOSINOPHIL % 2.1 % (0.7-5.8); EOSINOPHILS # 0.18 x10^3/uL (0.04-0.36); HEMATOCRIT 33.6 % (34.1-44.9); HEMOGLOBIN 9.9 g/dL (11.2-15.7); MCHC 29.5 g/dl (32.2-35.5); MEAN CELL VOLUME 89.1 fl (79.4-94.8); MEAN PLT VOLUME 9.8 fl (9.4-12.3); MONOCYTE # 0.89 x10^3/uL (0.24-0.86); MONOCYTE % 10.6 % (4.7-12.5); PLATELET COUNT 270 x10^3/uL (182-369); RDW 16.3 % (12.5-17.0)
[2024-11-15 12:26] LABS: INR 1.37 (0.83-1.09); PROTHROMBIN TIME (PATIENT) 15.2 SEC (9.7-13.0)
[2024-11-15 12:29] LABS: ACTIVATED PTT 32.7 SECONDS (25.2-36.5)
[2024-11-15 12:37] LABS: ALBUMIN 3.7 g/dl (3.4-5.0); BILIRUBIN,TOTAL 0.7 mg/dl (0.2-1); CALCIUM 9.2 mg/dl (8.5-10.1); CREATININE 0.7 mg/dl (0.6-1.3); POTASSIUM 4.3 mmol/L (3.5-5.1); TOT PROT 5.9 g/dl (6.4-8.2)
[2024-11-15] MEDS: ALBUTEROL SO4 2.5/IPRATROPIUM 0.5 INH SOL 3 ML VIAL.NEB. NEB SCH (12:40)
[2024-11-15] MEDS: DEXAMETHASONE SOD PHOSPHATE 10 MG/1 ML VIAL IVPUSH ONE (12:50)
[2024-11-15 13:44] LABS: VENOUS BASE EXCESS 3.1 mmol/L (-2-2); VENOUS O2 SATURATION 40.6 % (70-80); VENOUS PCO2 50.1 mmHg (38-52); VENOUS PH 7.38 (7.310-7.410)
[2024-11-15 13:57] LABS: N-TERMINAL BNP 2639.8 pg/ml (5-450)
[2024-11-15] MEDS ORDERED: AZITHROMYCIN 500 MG VIAL IVPB ONE (14:01)
[2024-11-15] MEDS ORDERED: cefTRIAXone SODIUM 1 GM VIAL ONE (14:01)
[2024-11-15] MEDS: CEFTRIAXONE 1,000 MG in DEXTROSE 5%-WATER - 50 ML IVPB ONE (14:06)
[2024-11-15] MEDS: AZITHROMYCIN IVPB 500 MG in DEXTROSE 5%-WATER - 250 ML IVPB ONE (14:45)
[2024-11-15] MEDS ORDERED: FUROSEMIDE 40 MG/4 ML INJECTABLE VIAL ONE (14:49)
[2024-11-15] MEDS: FUROSEMIDE 40 MG/4 ML INJECTABLE VIAL IVPUSH ONE (14:50)
[2024-11-15 15:39] LABS: EPITHELIAL CELLS FEW /hpf
[2024-11-15 17:16] VITALS: BMI 23.8
[2024-11-15] MEDS ORDERED: ACETAMINOPHEN 325 MG TABLET (FP) PO PRN (18:45)
[2024-11-15] MEDS: ASPIRIN COATED 81 MG TABLET.EC PO SCH (19:47)
[2024-11-15] MEDS: APIXABAN 2.5 MG TABLET PO SCH (22:10)
[2024-11-15] MEDS: ATORVASTATIN CA 40 MG TABLET (FP) PO SCH (22:10)
[2024-11-15] MEDS: LEVALBUTEROL HCL 0.63 MG/3 ML VIAL.NEB. IH PRN (22:11)
[2024-11-15] MEDS: MECLIZINE HCL 25 MG TABLET (FP) PO ONE (23:20)
[2024-11-15] MEDS: BENZONATATE 200 MG CAPSULE PO PRN (23:20)
[2024-11-16] MEDS: methylPREDNISolone NA SUCC 40 MG/1 ML VIAL IVPUSH SCH (01:09)
[2024-11-16] MEDS: LEVOTHYROXINE NA 50 MCG TABLET (FP) PO SCH (06:56)
[2024-11-16 07:49] LABS: HEMATOCRIT 31.1 % (34.1-44.9); HEMOGLOBIN 9.4 g/dL (11.2-15.7); MCHC 30.2 g/dl (32.2-35.5); MEAN CELL VOLUME 87.6 fl (79.4-94.8); MEAN PLT VOLUME 9.4 fl (9.4-12.3); PLATELET COUNT 251 x10^3/uL (182-369); RDW 16.2 % (12.5-17.0)
[2024-11-16 08:13] LABS: ALBUMIN 3.7 g/dl (3.4-5.0); BILIRUBIN,TOTAL 0.6 mg/dl (0.2-1); CALCIUM 9.4 mg/dl (8.5-10.1); CREATININE 0.7 mg/dl (0.6-1.3); POTASSIUM 4.4 mmol/L (3.5-5.1); TOT PROT 5.8 g/dl (6.4-8.2)
[2024-11-16] MEDS: ALBUTEROL SO4 2.5/IPRATROPIUM 0.5 INH SOL 3 ML VIAL.NEB. NEB SCH (08:33)
[2024-11-16] MEDS: FAMOTIDINE 20 MG TABLET PO SCH (10:20)
[2024-11-16] MEDS: AZITHROMYCIN IVPB 500 MG in DEXTROSE 5%-WATER - 250 ML IVPB SCH (10:20)
[2024-11-16] MEDS: guaiFENesin/D-METHORPHAN TAB.ER.12H PO SCH (10:20)
[2024-11-16] MEDS: CEFTRIAXONE 1 GM in DEXTROSE 5%-WATER - 50 ML IVPB SCH (10:20)
[2024-11-16] MEDS: FUROSEMIDE 40 MG/4 ML INJECTABLE VIAL IVPUSH ONE (10:20)
[2024-11-16] MEDS: predniSONE 20 MG TABLET (UD) PO SCH (10:21)
[2024-11-17 08:03] LABS: ABSOLUTE IMMATURE GRANULOCYTES 0.03 x10^3/uL (0.0-0.031); BASOPHILS # 0.01 x10^3/uL (0.01-0.08); HEMATOCRIT 29.3 % (34.1-44.9); HEMOGLOBIN 8.8 g/dL (11.2-15.7); MEAN CELL VOLUME 88.3 fl (79.4-94.8); MEAN PLT VOLUME 9.5 fl (9.4-12.3); MONOCYTE # 1.25 x10^3/uL (0.24-0.86); MONOCYTE % 10.1 % (4.7-12.5); PLATELET COUNT 253 x10^3/uL (182-369); RDW 16.6 % (12.5-17.0)
[2024-11-17 08:13] LABS: ALBUMIN 3.6 g/dl (3.4-5.0); BILIRUBIN,TOTAL 0.6 mg/dl (0.2-1); CALCIUM 9.1 mg/dl (8.5-10.1); CREATININE 0.8 mg/dl (0.6-1.3); PHOSPHOROUS 3.4 (2.5-4.9); POTASSIUM 4.2 mmol/L (3.5-5.1); TOT PROT 5.4 g/dl (6.4-8.2)
[2024-11-17] MEDS: LISINOPRIL 5 MG TABLET PO SCH (09:19)
[2024-11-17] MEDS: metoPROLOL SUCCINATE 25 MG TAB.SR.24H (FP) PO SCH (12:46)
[2024-11-17 18:08] VITALS: BP 123/57; PULSE 70; RESP 19; TEMP 98.5
== END 2024-11-17 18:00 | disposition home or self-care (01) | DRG 291 ==
LOC: FER 11:38 → FM/S 13:40
PROVIDERS: ATTEND Internal Medicine
DX: I11.0 Hypertensive heart disease with heart failure (principal); I50.31 Acute diastolic (congestive) heart failure; J44.1 Chronic obstructive pulmonary disease with (acute) exacerbation; I24.89 Other forms of acute ischemic heart disease; I10 Essential (primary) hypertension; E78.5 Hyperlipidemia, unspecified; E03.9 Hypothyroidism, unspecified; R79.89 Other specified abnormal findings of blood chemistry; M19.90 Unspecified osteoarthritis, unspecified site; R06.02 Shortness of breath; Z95.0 Presence of cardiac pacemaker
CPT/HCPCS: 0241U-QW; 36415; 71045-TC-FY; 80053; 81003; 81015; 82803; 82962; 83735; 83880; 84100; 84439; 84443; 84484; 85025; 85610; 85730; 87899; 93005; 93306-TC; 94640; 97116-GP; 97162-GP; 99285-25; J1100

== ENCOUNTER 2024-12-30 09:16 | Emergency (ER) | payer OTHER ==
[2024-12-30] MEDS ORDERED: ALBUTEROL SO4 2.5/IPRATROPIUM 0.5 INH SOL 3 ML VIAL.NEB. NEB ONE (09:37)
[2024-12-30] MEDS: ALBUTEROL SO4 2.5/IPRATROPIUM 0.5 INH SOL 3 ML VIAL.NEB. NEB ONE (09:45)
[2024-12-30] MEDS ORDERED: DEXAMETHASONE SOD PHOSPHATE 10 MG/1 ML VIAL ONE (09:58)
[2024-12-30] MEDS: DEXAMETHASONE SOD PHOSPHATE 10 MG/1 ML VIAL IVPUSH ONE (10:15)
[2024-12-30] MEDS: SODIUM CHLORIDE 0.9% 500 ML INFUS.BAG IV ONE (10:15)
[2024-12-30 10:47] LABS: ABSOLUTE IMMATURE GRANULOCYTES 0.01 x10^3/uL (0.0-0.031); BASOPHILS # 0.01 x10^3/uL (0.01-0.08); EOSINOPHIL % 0.9 % (0.7-5.8); EOSINOPHILS # 0.09 x10^3/uL (0.04-0.36); MCHC 29.2 g/dl (32.2-35.5); MEAN CELL VOLUME 88.8 fl (79.4-94.8); MEAN PLT VOLUME 9.8 fl (9.4-12.3); MONOCYTE # 0.86 x10^3/uL (0.24-0.86); MONOCYTE % 8.9 % (4.7-12.5); RDW 17.4 % (12.5-17.0)
[2024-12-30 10:56] LABS: ALK PHOS 83.0 U/L (45-117); CO2 28.0 mmol/L (21-32); CREATININE 0.7 mg/dl (0.6-1.3); GLUCOSE,RANDOM 161.0 mg/dl (74-106); SGOT/AST 29.0 U/L (15-37); SGPT/ALT 17.0 U/L (7-52); TOT PROT 5.7 g/dl (6.4-8.2)
[2024-12-30] MEDS ORDERED: MAGNESIUM 1GM/D5W - 1 GM/100 ML IVPB IVPB ONE (11:41)
[2024-12-30] MEDS: MAGNESIUM 1GM/D5W - 1 GM/100 ML IVPB IVPB ONE (11:46)
[2024-12-30 12:12] LABS: INR 1.34 (0.83-1.09); PROTHROMBIN TIME (PATIENT) 14.9 SEC (9.7-13.0)
[2024-12-30 12:15] LABS: ACTIVATED PTT 31.7 SECONDS (25.2-36.5)
[2024-12-30 12:36] LABS: N-TERMINAL BNP 5913.3 pg/ml (5-450)
[2024-12-30] MEDS ORDERED: ASPIRIN 81 MG CHEWABLE TABLETS ONE (12:43)
[2024-12-30] MEDS: ASPIRIN 81 MG CHEWABLE TABLETS PO ONE (12:47)
[2024-12-30] MEDS ORDERED: APIXABAN 5 MG TABLET ONE (13:24)
[2024-12-30] MEDS: APIXABAN 2.5 MG TABLET PO ONE (13:27)
[2024-12-30 13:30] VITALS: TEMP 98.1; BMI 24.8
[2024-12-30 14:01] VITALS: RESP 24
[2024-12-30 15:13] LABS: HCV DIAGNOSTIC IN-HOUSE W/RFLX NON-REACTIVE (NONREACTIVE)
[2024-12-30 15:20] LABS: HIV INTERPRETATION NEGATIVE (NEGATIVE)
[2024-12-30 19:46] VITALS: BP 125/68; PULSE 77
[2024-12-31] MEDS ORDERED: ASPIRIN COATED 81 MG TABLET.EC PO ONE (12:42)
== END 2024-12-30 20:05 | disposition short-term general hospital (02) ==
LOC: FER 09:16
PROC: 3E033GC Introduction of Other Therapeutic Substance into Peripheral Vein, Percutaneous Approach (ICD-10-PCS; principal; 2024-12-30)
PROC: 3E033GC Introduction of Other Therapeutic Substance into Peripheral Vein, Percutaneous Approach (ICD-10-PCS; 2024-12-30)
PROC: 3E0F7GC Introduction of Other Therapeutic Substance into Respiratory Tract, Via Natural or Artificial Opening (ICD-10-PCS; 2024-12-30)
DX: R79.89 Other specified abnormal findings of blood chemistry (principal); R06.02 Shortness of breath; R05.3 Chronic cough; R53.1 Weakness
CPT/HCPCS: 36415; 71045-TC-FY; 80053; 81003; 81015; 83735; 83880; 84484; 85025; 85610; 85730; 86803; 87086; 87389; 87637-QW; 93005; 99291; J1100